=== PATIENT | male | born 1945 | race Caucasian/White ===

== ENCOUNTER 2017-09-24 16:37 | Inpatient (IN) | payer MEDICARE ==
[~2017-09-24] VITALS: Ht 182.9 cm; Wt 99.5 kg
[~2017-09-24 16:37] MED LIST: CALCIUM PO; CITA20 PO; IBUP800 PO; LEUC5 PO; LISI20 PO; LORA10ER PO; METTREX2.5 PO; Norco 10-325 T1 EACH PO
[2017-09-24 17:19] LABS: BASOPHILS ABSOLUTE AUTO 0.09 K/mm3 (0.00-0.23); BASOPHILS PERCENT AUTO 1 % (0-2); EOSINOPHILS ABSOLUTE AUTO 0.05 K/mm3 (0.00-0.68); EOSINOPHILS PERCENT AUTO 0 % (0-6); Hematocrit 39.6 % (37.0-53.0); Hemoglobin 13.1 g/dL (13.5-17.5); IMMATURE GRAN ABSOLUTE AUTO 0.05 K/mm3 (0.00-0.10); IMMATURE GRAN PERCENT AUTO 0 % (0-1); LYMPHOCYTES ABSOLUTE AUTO 0.91 K/mm3 (0.84-5.20); LYMPHOCYTES PERCENT AUTO 6 % (21-46); MONOCYTES ABSOLUTE AUTO 1.12 K/mm3 (0.16-1.47); MONOCYTES PERCENT AUTO 7 % (4-13); Mean Corpuscular HGB 30.5 pg (26.0-34.0); Mean Corpuscular HGB Conc 33.1 g/dL (31.5-36.5); Mean Corpuscular Volume 92 fL (80-100); Mean Platelet Volume 10.3 fL (9.1-12.4); NEUTROPHILS ABSOLUTE AUTO 12.83 K/mm3 (1.96-9.15); NEUTROPHILS PERCENT AUTO 85 % (41-73); Platelet Count 226 K/mm3 (150-400); RDW Coefficient Variation 13.7 % (11.7-14.2); RDW Standard Deviation 45.4 fL (35.1-46.3); White Blood Cell Count 15.05 K/mm3 (4.00-11.30)
[2017-09-24 17:39] LABS: Alanine Aminotransfer (ALT/SGP 18 U/L (12-78); Albumin, Blood 3.7 g/dL (3.4-5.0); Albumin/Globulin Ratio 0.7 (0.8-1.8); Alk Phos 81 U/L (50-136); Anion Gap 8 mmol/L (6-16); Aspartate Aminotrans (AST/SGOT 20 U/L (12-37); Bilirubin, Total 0.9 mg/dL (0.1-1.0); Blood Urea Nitrogen 16 mg/dL (8-24); Bun/Creatinine Ratio 15.2 (12.0-20.0); CO2, Blood 25 mmol/L (21-32); Calcium, Blood 8.9 mg/dL (8.5-10.1); Chloride, Blood 99 mmol/L (98-108); Creatinine, Blood 1.05 mg/dL (0.60-1.20); Globulin, Blood 5.1 g/dL (2.2-4.0); Glomerular Filtration Rate >60 (60-); Glucose, Blood 93 mg/dL (70-99); Potassium, Blood 4.2 mmol/L (3.5-5.5); Sodium, Blood 132 mmol/L (136-145); Total Protein, Blood 8.8 g/dL (6.4-8.2); Troponin I <0.015 ng/mL (0.000-0.040)
[2017-09-24] MEDS ORDERED: PRAV20 PO (21:08)
[2017-09-24] MEDS ORDERED: Omeprazole20 M1 PO (21:08)
[2017-09-24] MEDS ORDERED: VENL150ER PO (21:08)
[2017-09-24] MEDS ORDERED: MULVITB (21:09)
[2017-09-24] MEDS ORDERED: AMLO5 PO (21:09)
[2017-09-24 21:39] LABS: Influenza A Negative (NEGATIVE); Influenza B Negative (NEGATIVE)
[2017-09-25 00:24] LABS: Source, Urine Clean Catch
[2017-09-25 00:26] LABS: Bilirubin, Urine Neg (Neg); Blood, Urine 2+ (Neg); Glucose Qualitative, Urine Neg (Neg); Ketones, Urine Neg (Neg); Leukocyte Esterase, Urine Neg (Neg); Nitrite, Urine Neg (Neg); Protein, Urine Neg (Neg); Urobilinogen, Urine NORM (Normal)
[2017-09-25 00:51] LABS: Appearance, Urine Clear (Clear); Color, Urine Pale Yellow (P-Yellow)
[2017-09-25 01:42] LABS: Bacteria Not Seen /hpf; Squamous Epithelial Cells Not Seen /hpf (Few); White Blood Cells, Urine 0-2 /hpf (0-5)
[2017-09-25 05:30] LABS: BASOPHILS ABSOLUTE AUTO 0.05 K/mm3 (0.00-0.23); BASOPHILS PERCENT AUTO 0 % (0-2); EOSINOPHILS PERCENT AUTO 0 % (0-6); Hematocrit 35.8 % (37.0-53.0); Hemoglobin 12.2 g/dL (13.5-17.5); IMMATURE GRAN PERCENT AUTO 1 % (0-1); LYMPHOCYTES ABSOLUTE AUTO 0.48 K/mm3 (0.84-5.20); LYMPHOCYTES PERCENT AUTO 3 % (21-46); MONOCYTES ABSOLUTE AUTO 0.24 K/mm3 (0.16-1.47); MONOCYTES PERCENT AUTO 2 % (4-13); Mean Corpuscular HGB 31.1 pg (26.0-34.0); Mean Corpuscular HGB Conc 34.1 g/dL (31.5-36.5); Mean Corpuscular Volume 91 fL (80-100); Mean Platelet Volume 10.7 fL (9.1-12.4); NEUTROPHILS PERCENT AUTO 94 % (41-73); Platelet Count 171 K/mm3 (150-400); RDW Coefficient Variation 13.9 % (11.7-14.2); RDW Standard Deviation 44.8 fL (35.1-46.3); Red Blood Cell Count 3.92 M/mm3 (4.30-5.90); White Blood Cell Count 14.67 K/mm3 (4.00-11.30)
[2017-09-25 05:54] LABS: Alanine Aminotransfer (ALT/SGP 14 U/L (12-78); Albumin, Blood 3.1 g/dL (3.4-5.0); Albumin/Globulin Ratio 0.6 (0.8-1.8); Alk Phos 69 U/L (50-136); Anion Gap 9 mmol/L (6-16); Aspartate Aminotrans (AST/SGOT 18 U/L (12-37); Bilirubin, Total 0.8 mg/dL (0.1-1.0); Blood Urea Nitrogen 18 mg/dL (8-24); Bun/Creatinine Ratio 18.8 (12.0-20.0); CO2, Blood 24 mmol/L (21-32); Calcium, Blood 8.4 mg/dL (8.5-10.1); Chloride, Blood 104 mmol/L (98-108); Creatinine, Blood 0.96 mg/dL (0.60-1.20); Glomerular Filtration Rate >60 (60-); Glucose, Blood 140 mg/dL (70-99); Potassium, Blood 3.8 mmol/L (3.5-5.5); Sodium, Blood 137 mmol/L (136-145); Total Protein, Blood 8.1 g/dL (6.4-8.2)
[2017-09-26 04:35] LABS: Hematocrit 35.7 % (37.0-53.0); Mean Corpuscular HGB 30.8 pg (26.0-34.0); Mean Corpuscular HGB Conc 33.6 g/dL (31.5-36.5); Mean Corpuscular Volume 92 fL (80-100); Mean Platelet Volume 10.6 fL (9.1-12.4); Platelet Count 219 K/mm3 (150-400); RDW Coefficient Variation 14.2 % (11.7-14.2); RDW Standard Deviation 47.1 fL (35.1-46.3); Red Blood Cell Count 3.89 M/mm3 (4.30-5.90); White Blood Cell Count 18.32 K/mm3 (4.00-11.30)
[2017-09-26] MEDS ORDERED: Calcium Carbon500 M1 PO (10:18)
[2017-09-26] MEDS ORDERED: ROBITUSSIN COU237 ML PO (10:23)
[2017-09-26] MEDS ORDERED: Levaquin750 MG PO (10:24)
[2018-06-26] MEDS ORDERED: FOLI1 (21:02)
[2018-06-26] MEDS ORDERED: Vitamin C100 M1 (21:02)
[2018-06-26] MEDS ORDERED: FISH OIL + D31 EACH (21:02)
[2018-06-26] MEDS ORDERED: LEVFLO500 PO (21:06)
[2018-08-04] MEDS ORDERED: GABA400 PO (10:27)
[2018-08-04] MEDS ORDERED: FOLI400 PO (10:35)
[2018-08-04] MEDS ORDERED: ZESTRIL40 MG PO (10:41)
[2018-08-05] MEDS ORDERED: GABA400 PO (13:25)
[2018-08-06] MEDS ORDERED: ACET325 PO (13:31)
[2018-08-06] MEDS ORDERED: ALBU90OI INH (13:33)
[2018-08-06] MEDS ORDERED: CEFP200 PO (13:33)
[2018-08-06] MEDS ORDERED: DOCU100 PO (13:34)
[2018-08-06] MEDS ORDERED: ONDA4ODT MM (13:34)
[2018-08-06] MEDS ORDERED: LEVO750 PO (13:34)
[2018-08-06] MEDS ORDERED: PRED20 PO (13:34)
== END 2017-09-26 13:32 | disposition home or self-care (01) | DRG 871 ==
LOC: ER 16:37 → MEDS 20:00 → ENPENDDIS 09-26 09:02 → MEDS 09-26 13:32
PROVIDERS: Emergency Medicine; Internal Medicine; Psychiatry & Neurology Psychiatry
DX: A41.9 Sepsis, unspecified organism (principal); J18.9 Pneumonia, unspecified organism; J96.01 Acute respiratory failure with hypoxia; J44.0 Chronic obstructive pulmonary disease with (acute) lower respiratory infection; J44.1 Chronic obstructive pulmonary disease with (acute) exacerbation; G47.33 Obstructive sleep apnea (adult) (pediatric); M06.9 Rheumatoid arthritis, unspecified; Z79.899 Other long term (current) drug therapy
CPT/HCPCS: 36415; 71046; 80053; 81001; 83605; 84145; 84484; 85025; 85027; 87040; 87804; 93005; 93010; 94640; 94660; 94762; 96365; 96375; 99285; J0456; J0696; J1650; J2765; J2930; J7030; J7050; J8610

== ENCOUNTER 2018-01-17 20:09 | Emergency (ER) | payer MEDICARE ==
[~2018-01-17] VITALS: Ht 167.6 cm; Wt 99.3 kg
[~2018-01-17 20:09] MED LIST changes: +AMLO5 PO; +Calcium Carbon500 M1 PO; +HYDACE10B PO; +Levaquin750 MG PO; +MULVITB; -Norco 10-325 T1 EACH PO; +Omeprazole20 M1 PO; +PRAV20 PO; +ROBITUSSIN COU237 ML PO; +VENL150ER PO
[2018-01-17 20:49] LABS: BASOPHILS ABSOLUTE AUTO 0.08 K/mm3 (0.00-0.23); BASOPHILS PERCENT AUTO 1 % (0-2); EOSINOPHILS ABSOLUTE AUTO 0.09 K/mm3 (0.00-0.68); EOSINOPHILS PERCENT AUTO 1 % (0-6); Hematocrit 38.2 % (37.0-53.0); Hemoglobin 12.9 g/dL (13.5-17.5); IMMATURE GRAN ABSOLUTE AUTO 0.06 K/mm3 (0.00-0.10); IMMATURE GRAN PERCENT AUTO 1 % (0-1); LYMPHOCYTES ABSOLUTE AUTO 0.98 K/mm3 (0.84-5.20); LYMPHOCYTES PERCENT AUTO 7 % (21-46); MONOCYTES PERCENT AUTO 8 % (4-13); Mean Corpuscular HGB 31.3 pg (26.0-34.0); Mean Corpuscular HGB Conc 33.8 g/dL (31.5-36.5); Mean Corpuscular Volume 93 fL (80-100); Mean Platelet Volume 10.3 fL (9.1-12.4); NEUTROPHILS ABSOLUTE AUTO 11.05 K/mm3 (1.96-9.15); NEUTROPHILS PERCENT AUTO 83 % (41-73); Platelet Count 252 K/mm3 (150-400); RDW Coefficient Variation 14.1 % (11.7-14.2); RDW Standard Deviation 47.3 fL (35.1-46.3); Red Blood Cell Count 4.12 M/mm3 (4.30-5.90); White Blood Cell Count 13.26 K/mm3 (4.00-11.30)
[2018-01-17 21:07] LABS: Alanine Aminotransfer (ALT/SGP 19 U/L (12-78); Albumin, Blood 3.8 g/dL (3.4-5.0); Albumin/Globulin Ratio 0.7 (0.8-1.8); Alk Phos 94 U/L (50-136); Anion Gap 7 mmol/L (6-16); Aspartate Aminotrans (AST/SGOT 22 U/L (12-37); Bilirubin, Total 0.9 mg/dL (0.1-1.0); Blood Urea Nitrogen 21 mg/dL (8-24); CO2, Blood 26 mmol/L (21-32); Chloride, Blood 102 mmol/L (98-108); Creatinine, Blood 1.05 mg/dL (0.60-1.20); Globulin, Blood 5.1 g/dL (2.2-4.0); Glomerular Filtration Rate >60 (60-); Glucose, Blood 93 mg/dL (70-99); Potassium, Blood 4.4 mmol/L (3.5-5.5); Sodium, Blood 135 mmol/L (136-145); Total Protein, Blood 8.9 g/dL (6.4-8.2)
[2018-01-17 21:39] LABS: Source, Urine Clean Catch
[2018-01-17 21:43] LABS: Appearance, Urine Clear (Clear); Bilirubin, Urine Neg (Neg); Blood, Urine Neg (Neg); Color, Urine Yellow (P-Yellow); Glucose Qualitative, Urine Neg (Neg); Ketones, Urine Neg (Neg); Leukocyte Esterase, Urine Neg (Neg); Nitrite, Urine Neg (Neg); Protein, Urine Neg (Neg); Urobilinogen, Urine NORM (Normal)
[2018-01-17] MEDS ORDERED: Augmentin 875-1 EACH PO (22:17)
== END 2018-01-17 22:34 | disposition home or self-care (01) ==
LOC: ER 20:09
PROVIDERS: Emergency Medicine
DX: J18.9 Pneumonia, unspecified organism (principal); Z79.899 Other long term (current) drug therapy; Z79.891 Long term (current) use of opiate analgesic; Z79.2 Long term (current) use of antibiotics; I10 Essential (primary) hypertension; Z87.891 Personal history of nicotine dependence
CPT/HCPCS: 36415; 71046; 80053; 81003; 83605; 85025; 94640; J0696

== ENCOUNTER 2018-10-28 15:23 | Inpatient (IN) | payer MEDICARE ==
[~2018-10-28] VITALS: Ht 188 cm; Wt 91.5 kg
[~2018-10-28 15:23] MED LIST changes: +ACET325 PO; +ALBU90OI INH; +Augmentin 875-1 EACH PO; +CEFP200 PO; +DOCU100 PO; +FISH OIL + D31 EACH; +FOLI1; +FOLI400 PO; +GABA400 PO; -HYDACE10B PO; +LEVFLO500 PO; +LEVO750 PO; +Norco 10-325 T1 EACH PO; +ONDA4ODT MM; +PRED20 PO; +Vitamin C100 M1; +ZESTRIL40 MG PO
[2018-10-28 17:41] LABS: BASOPHILS ABSOLUTE AUTO 0.11 K/mm3 (0.00-0.23); BASOPHILS PERCENT AUTO 1 % (0-2); EOSINOPHILS ABSOLUTE AUTO 0.07 K/mm3 (0.00-0.68); EOSINOPHILS PERCENT AUTO 1 % (0-6); Hematocrit 35.6 % (37.0-53.0); Hemoglobin 11.7 g/dL (13.5-17.5); IMMATURE GRAN ABSOLUTE AUTO 0.05 K/mm3 (0.00-0.10); IMMATURE GRAN PERCENT AUTO 0 % (0-1); LYMPHOCYTES ABSOLUTE AUTO 1.26 K/mm3 (0.84-5.20); LYMPHOCYTES PERCENT AUTO 8 % (21-46); MONOCYTES PERCENT AUTO 9 % (4-13); Mean Corpuscular HGB 30.7 pg (26.0-34.0); Mean Corpuscular HGB Conc 32.9 g/dL (31.5-36.5); Mean Corpuscular Volume 93 fL (80-100); Mean Platelet Volume 10.7 fL (9.1-12.4); NEUTROPHILS ABSOLUTE AUTO 12.51 K/mm3 (1.96-9.15); NEUTROPHILS PERCENT AUTO 81 % (41-73); Platelet Count 227 K/mm3 (150-400); RDW Coefficient Variation 13.8 % (11.7-14.2); RDW Standard Deviation 46.3 fL (35.1-46.3); Red Blood Cell Count 3.81 M/mm3 (4.30-5.90)
[2018-10-28 17:52] LABS: Albumin, Blood 3.7 g/dL (3.4-5.0); Albumin/Globulin Ratio 0.9 (0.8-1.8); Bilirubin, Total 1.2 mg/dL (0.1-1.0); Calcium, Blood 8.7 mg/dL (8.5-10.1); Creatinine, Blood 1.39 mg/dL (0.60-1.20); Globulin, Blood 4.3 g/dL (2.2-4.0)
[2018-10-28] MEDS ORDERED: ASCO500 PO (18:48)
[2018-10-28] MEDS ORDERED: Fish Oil 10001000 MG PO (18:49)
[2018-10-28 22:49] LABS: Source, Urine Clean Catch
[2018-10-28 22:51] LABS: Bilirubin, Urine Neg (Neg); Blood, Urine 5+ (Neg); Glucose Qualitative, Urine Neg (Neg); Ketones, Urine 1+ (Neg); Leukocyte Esterase, Urine 1+ (Neg); Nitrite, Urine Neg (Neg); Protein, Urine 3+ (Neg); Urobilinogen, Urine NORM (Normal)
[2018-10-28 22:59] LABS: Amorphous Light (0-Heavy); Appearance, Urine Clear (Clear); Bacteria Few /hpf; Color, Urine Yellow (P-Yellow); Red Blood Cells, Urine Rare /hpf (0-2); Squamous Epithelial Cells Rare /hpf (Few); White Blood Cells, Urine 0-2 /hpf (0-5)
[2018-10-29 02:46] LABS: Source, Urine Catheter
[2018-10-29 02:51] LABS: Bilirubin, Urine Neg (Neg); Blood, Urine 4+ (Neg); Glucose Qualitative, Urine Neg (Neg); Ketones, Urine Neg (Neg); Leukocyte Esterase, Urine Neg (Neg); Nitrite, Urine Neg (Neg); Protein, Urine 2+ (Neg); Urobilinogen, Urine NORM (Normal)
[2018-10-29 03:08] LABS: Appearance, Urine Clear (Clear); Bacteria Rare /hpf; Color, Urine Yellow (P-Yellow); Red Blood Cells, Urine 0-2 /hpf (0-2); Squamous Epithelial Cells Not Seen /hpf (Few); White Blood Cells, Urine Not Seen /hpf (0-5)
[2018-10-29 03:55] LABS: Hematocrit 32.9 % (37.0-53.0); Hemoglobin 10.7 g/dL (13.5-17.5); Mean Corpuscular HGB 31.2 pg (26.0-34.0); Mean Corpuscular HGB Conc 32.5 g/dL (31.5-36.5); Mean Platelet Volume 10.8 fL (9.1-12.4); Platelet Count 172 K/mm3 (150-400); RDW Coefficient Variation 13.7 % (11.7-14.2); RDW Standard Deviation 46.9 fL (35.1-46.3); Red Blood Cell Count 3.43 M/mm3 (4.30-5.90); White Blood Cell Count 10.91 K/mm3 (4.00-11.30)
[2018-10-29 04:04] LABS: Mean Corpuscular Volume 96 fL (80-100)
[2018-10-29 04:08] LABS: International Normalized Ratio 1.08; Prothrombin Time Results 11.4 Sec (9.7-11.5)
[2018-10-29 04:16] LABS: Anion Gap 7 mmol/L (6-16); Blood Urea Nitrogen 28 mg/dL (8-24); Bun/Creatinine Ratio 24.6 (12.0-20.0); CO2, Blood 23 mmol/L (21-32); Calcium, Blood 8.2 mg/dL (8.5-10.1); Chloride, Blood 106 mmol/L (98-108); Creatinine, Blood 1.14 mg/dL (0.60-1.20); Glomerular Filtration Rate >60 (60-); Glucose, Blood 98 mg/dL (70-99); Potassium, Blood 3.8 mmol/L (3.5-5.5); Sodium, Blood 136 mmol/L (136-145)
[2018-10-29 05:08] LABS: Adenovirus Not Detected (NOT DETECT); Bordetella pertussis Not Detected (NOT DETECT); Chlamydophila pneumoniae Not Detected (NOT DETECT); Coronavirus 229E Not Detected (NOT DETECT); Coronavirus HKU1 Not Detected (NOT DETECT); Coronavirus NL63 Not Detected (NOT DETECT); Coronavirus OC43 Not Detected (NOT DETECT); Human Metapneumovirus Not Detected (NOT DETECT); Human Rhinovirus/Enterovirus Not Detected (NOT DETECT); Influenza A Not Detected (NOT DETECT); Influenza A/2009-H1 Not Detected (NOT DETECT); Influenza A/H1 Not Detected (NOT DETECT); Influenza A/H3 Not Detected (NOT DETECT); Influenza B Not Detected (NOT DETECT); Mycoplasma pneumoniae Not Detected (NOT DETECT); Parainfluenza Virus 1 Not Detected (NOT DETECT); Parainfluenza Virus 2 Not Detected (NOT DETECT); Parainfluenza Virus 3 Not Detected (NOT DETECT); Parainfluenza Virus 4 Not Detected (NOT DETECT); Respiratory Syncytial Virus Not Detected (NOT DETECT)
--- NOTE | 2018-10-29 06:34 | NUR ---
SHIFT SUMMARY PT ALERT AND ORIENTED. PT HAS HX OF DEMENTIA WITH MILD CONFUSION. VS STABLE. 02 SATS >92% ON 2L NC. PT HAS ABRASION TO THE LEFT ARM COVERED WTIH DRESSING FROM RECENT FALL. HR IS NSR WITH PAC AND PVC WITH A RATE IN THE 60'S. NS INF PER ORDERS. NO CHANGES SINCE INITIAL ASSESSMENT. WILL CONTINUE TO MONITOR AND REPORT TO ONCOMING RN. CALL LIGHT IN REACH.
--- NOTE | 2018-10-29 15:32 | NUR ---
Spiritual care visit conducted. Patient was sitting up in bed and alert when I entered the patient's room. I introduced myself and patient welcomed me to sit down. As I established therapeutic alliance patient openly shared about his medical and family history and about his pentecostalism background. I listened empathically, provided companionship and normalized patient's experience. Patient told many stories and it appeared to have a catharsis effect. Patient expressed gratitude for the visit.
--- NOTE | 2018-10-29 16:08 | NUR ---
Wound care done: Left fore arm and upper arm abrasion were dressed with mepitel one to prevent adhesion of the dressing to the wound. Maxabsorb mepilex was applied over this for absorbtion, secured then with kerlix wrap followed by MT spandage. NO active drainage was noted, and photo wound documentation done and placed in to the pt's chart. Pt denies pain. tolerated the wound care very well.
--- NOTE | 2018-10-29 16:29 | NUR ---
The pt reports that he is having no pain at this time.
[2018-10-30 04:05] LABS: BASOPHILS ABSOLUTE AUTO 0.06 K/mm3 (0.00-0.23); BASOPHILS PERCENT AUTO 1 % (0-2); EOSINOPHILS ABSOLUTE AUTO 0.09 K/mm3 (0.00-0.68); EOSINOPHILS PERCENT AUTO 1 % (0-6); Hematocrit 31.3 % (37.0-53.0); Hemoglobin 10.4 g/dL (13.5-17.5); IMMATURE GRAN ABSOLUTE AUTO 0.04 K/mm3 (0.00-0.10); IMMATURE GRAN PERCENT AUTO 0 % (0-1); LYMPHOCYTES ABSOLUTE AUTO 0.64 K/mm3 (0.84-5.20); LYMPHOCYTES PERCENT AUTO 6 % (21-46); MONOCYTES ABSOLUTE AUTO 1.07 K/mm3 (0.16-1.47); MONOCYTES PERCENT AUTO 11 % (4-13); Mean Corpuscular HGB Conc 33.2 g/dL (31.5-36.5); Mean Platelet Volume 10.8 fL (9.1-12.4); NEUTROPHILS ABSOLUTE AUTO 8.23 K/mm3 (1.96-9.15); NEUTROPHILS PERCENT AUTO 81 % (41-73); Platelet Count 188 K/mm3 (150-400); RDW Coefficient Variation 13.6 % (11.7-14.2); RDW Standard Deviation 45.9 fL (35.1-46.3); Red Blood Cell Count 3.36 M/mm3 (4.30-5.90); White Blood Cell Count 10.13 K/mm3 (4.00-11.30)
[2018-10-30 04:14] LABS: Mean Corpuscular Volume 93 fL (80-100)
[2018-10-30 04:25] LABS: Anion Gap 8 mmol/L (6-16); Blood Urea Nitrogen 19 mg/dL (8-24); Bun/Creatinine Ratio 21.6 (12.0-20.0); CO2, Blood 24 mmol/L (21-32); Calcium, Blood 8.2 mg/dL (8.5-10.1); Chloride, Blood 105 mmol/L (98-108); Creatinine, Blood 0.88 mg/dL (0.60-1.20); Glomerular Filtration Rate >60 (60-); Glucose, Blood 107 mg/dL (70-99); Magnesium, Blood 1.4 mg/dL (1.6-2.4); Potassium, Blood 3.7 mmol/L (3.5-5.5); Sodium, Blood 137 mmol/L (136-145)
--- NOTE | 2018-10-30 06:40 | NUR ---
SHIFT SUMMARY PATIENT PLEASENT AND COOPERATIVE THROUGHOUT THE NIGHT. PATIENT APPEARED TO NAP ON AND OFF THROUGHOUT THE NIGHT LAST NIGHT, HOWEVER, PATIENT STATES THAT IS HOW HE USUALLY SLEEPS. PATIENT REPORTED THAT HE SLEPT WELL LAST NIGHT. PATIENT MEDICATED FOR PAIN PER EMAR. IV ABX GIVEN PER ORDERS. PATIENT APPEARED ALERT AND ORIENTED THROUGHOUT THE NIGHT, HOWEVER, PATIENT DID SET OFF THE BED ALARM SEVERAL TIMES LAST NIGHT WHILE GETTING UP TO USE THE URINAL EVEN WHEN REMINDED TO USE THE CALL LIGHT AND TO WAIT FOR SOMEONE TO ASSIST. BED IN LOW POSITION, BED ALARM ON FOR SAFETY, CALL LIGHT WITHIN REACH. PATIENT REFUSED TO USE THE CPAP AND CONTINUOUS BIOX, REFUSAL FORM SIGNED AND IN THE FRONT OF THE CHART. WILL CONTINUE TO MONITOR PATIENT AND REPORT TO ONCOMING RN.
[2018-10-30] MEDS ORDERED: LEVO750 PO (14:52)
[2018-10-30] MEDS ORDERED: CALCIUM WITH V1 EACH PO (14:52)
[2018-10-30] MEDS ORDERED: MELA3 PO (14:53)
[2018-10-30] MEDS ORDERED: METR500 PO (14:54)
[2018-10-30] MEDS ORDERED: MAGCHL64ER PO (14:54)
[2018-10-30] MEDS ORDERED: SACC250C PO (14:55)
== END 2018-10-30 15:32 | disposition home or self-care (01) | DRG 871 ==
LOC: ER 15:23 → ERHOLD 20:08 → PCU 10-29 02:21
PROVIDERS: Family Medicine; Nurse Practitioner Acute Care; Physician Assistant; ADMIT Internal Medicine
DX: A41.9 Sepsis, unspecified organism (principal); J96.01 Acute respiratory failure with hypoxia; G92 Toxic encephalopathy; J18.1 Lobar pneumonia, unspecified organism; N17.9 Acute kidney failure, unspecified; E86.0 Dehydration; G47.33 Obstructive sleep apnea (adult) (pediatric); F03.90 Unspecified dementia, unspecified severity, without behavioral disturbance, psychotic disturbance, mood disturbance, and anxiety; W19.XXXA Unspecified fall, initial encounter; K21.9 Gastro-esophageal reflux disease without esophagitis; E78.5 Hyperlipidemia, unspecified; M06.9 Rheumatoid arthritis, unspecified; Z91.81 History of falling
CPT/HCPCS: 36415; 70450; 71046; 73502; 80048; 80053; 81001; 83605; 83690; 83735; 84145; 85025; 85027; 85610; 87086; 87486; 87581; 87633; 87798; 92610; 96361; 96365; 96375; 96376; 97116; 97162; 97166; 97530; 99285-25; J1650; J1956; J2543; J3475; J7030; J7040; J8610

== ENCOUNTER → 2019-07-29 | Outpatient (CLI) | payer MEDICARE ==
[~2019-07-29] MED LIST changes: +ASCO500 PO; +CALCIUM WITH V1 EACH PO; +Fish Oil 10001000 MG PO; +MAGCHL64ER PO; +MELA3 PO; +METR500 PO; +SACC250C PO
== END | disposition home or self-care (01) ==
LOC: PLD 11:58 → LAB SHORT 11:58
DX: D48.5 Neoplasm of uncertain behavior of skin (principal)
CPT/HCPCS: 88305

== ENCOUNTER 2019-10-29 20:53 | Inpatient (IN) | payer MEDICARE ==
[~2019-10-29] VITALS: Ht 185.4 cm; Wt 93.4 kg
[2019-10-29 21:44] LABS: BASOPHILS PERCENT AUTO 1 % (0-2); EOSINOPHILS ABSOLUTE AUTO 0.14 K/mm3 (0.00-0.68); EOSINOPHILS PERCENT AUTO 1 % (0-6); Hematocrit 37.8 % (37.0-53.0); Hemoglobin 12.7 g/dL (13.5-17.5); IMMATURE GRAN ABSOLUTE AUTO 0.04 K/mm3 (0.00-0.10); IMMATURE GRAN PERCENT AUTO 0 % (0-1); LYMPHOCYTES ABSOLUTE AUTO 0.83 K/mm3 (0.84-5.20); LYMPHOCYTES PERCENT AUTO 7 % (21-46); MONOCYTES ABSOLUTE AUTO 0.84 K/mm3 (0.16-1.47); MONOCYTES PERCENT AUTO 7 % (4-13); Mean Corpuscular HGB 31.4 pg (26.0-34.0); Mean Corpuscular HGB Conc 33.6 g/dL (31.5-36.5); Mean Corpuscular Volume 94 fL (80-100); Mean Platelet Volume 10.5 fL (9.1-12.4); NEUTROPHILS ABSOLUTE AUTO 9.35 K/mm3 (1.96-9.15); NEUTROPHILS PERCENT AUTO 83 % (41-73); Platelet Count 245 K/mm3 (150-400); RDW Coefficient Variation 13.7 % (11.7-14.2); Red Blood Cell Count 4.04 M/mm3 (4.30-5.90)
[2019-10-29 22:02] LABS: International Normalized Ratio 1.01; Prothrombin Time Results 10.8 Sec (9.7-11.5)
[2019-10-29 22:03] LABS: Alanine Aminotransfer (ALT/SGP 16 U/L (12-78); Albumin, Blood 3.7 g/dL (3.4-5.0); Albumin/Globulin Ratio 0.8 (0.8-1.8); Alk Phos 87 U/L (50-136); Anion Gap 3 mmol/L (6-16); Aspartate Aminotrans (AST/SGOT 18 U/L (12-37); Bilirubin, Total 0.7 mg/dL (0.1-1.0); Blood Urea Nitrogen 27 mg/dL (8-24); Bun/Creatinine Ratio 25.7 (12.0-20.0); CO2, Blood 26 mmol/L (21-32); Calcium, Blood 8.7 mg/dL (8.5-10.1); Chloride, Blood 106 mmol/L (98-108); Creatinine, Blood 1.05 mg/dL (0.60-1.20); Globulin, Blood 4.5 g/dL (2.2-4.0); Glomerular Filtration Rate >60 (60-); Glucose, Blood 103 mg/dL (70-99); Sodium, Blood 135 mmol/L (136-145); Total Protein, Blood 8.2 g/dL (6.4-8.2)
[2019-10-30 02:15] LABS: Adenovirus Not Detected (NOT DETECT); Bordetella pertussis Not Detected (NOT DETECT); Chlamydophila pneumoniae Not Detected (NOT DETECT); Coronavirus 229E Not Detected (NOT DETECT); Coronavirus HKU1 Not Detected (NOT DETECT); Coronavirus NL63 Not Detected (NOT DETECT); Coronavirus OC43 Not Detected (NOT DETECT); Human Metapneumovirus Not Detected (NOT DETECT); Human Rhinovirus/Enterovirus Not Detected (NOT DETECT); Influenza A/2009-H1 Not Detected (NOT DETECT); Influenza A/H1 Not Detected (NOT DETECT); Influenza A/H3 Not Detected (NOT DETECT); Influenza B Not Detected (NOT DETECT); Mycoplasma pneumoniae Not Detected (NOT DETECT); Parainfluenza Virus 1 Not Detected (NOT DETECT); Parainfluenza Virus 2 Not Detected (NOT DETECT); Parainfluenza Virus 3 Not Detected (NOT DETECT); Parainfluenza Virus 4 Not Detected (NOT DETECT); Respiratory Syncytial Virus Not Detected (NOT DETECT)
[2019-10-30 03:41] LABS: Test Name COVID-19
[2019-10-30 06:05] LABS: Hemoglobin 12.3 g/dL (13.5-17.5); Mean Corpuscular HGB 31.1 pg (26.0-34.0); Mean Corpuscular HGB Conc 33.2 g/dL (31.5-36.5); Mean Corpuscular Volume 94 fL (80-100); Mean Platelet Volume 10.2 fL (9.1-12.4); Platelet Count 231 K/mm3 (150-400); RDW Coefficient Variation 13.9 % (11.7-14.2); RDW Standard Deviation 47.5 fL (35.1-46.3); Red Blood Cell Count 3.95 M/mm3 (4.30-5.90); White Blood Cell Count 11.72 K/mm3 (4.00-11.30)
[2019-10-30 06:24] LABS: Alanine Aminotransfer (ALT/SGP 17 U/L (12-78); Albumin, Blood 3.3 g/dL (3.4-5.0); Albumin/Globulin Ratio 0.8 (0.8-1.8); Alk Phos 84 U/L (50-136); Anion Gap 7 mmol/L (6-16); Aspartate Aminotrans (AST/SGOT 19 U/L (12-37); Bilirubin, Total 1.1 mg/dL (0.1-1.0); Blood Urea Nitrogen 24 mg/dL (8-24); CO2, Blood 25 mmol/L (21-32); Calcium, Blood 8.5 mg/dL (8.5-10.1); Chloride, Blood 106 mmol/L (98-108); Creatinine, Blood 1.09 mg/dL (0.60-1.20); Globulin, Blood 4.4 g/dL (2.2-4.0); Glomerular Filtration Rate >60 (60-); Glucose, Blood 104 mg/dL (70-99); Potassium, Blood 3.9 mmol/L (3.5-5.5); Sodium, Blood 138 mmol/L (136-145); Total Protein, Blood 7.7 g/dL (6.4-8.2)
[2019-10-30 07:02] LABS: Source, Urine Catheter
[2019-10-30 07:13] LABS: Bilirubin, Urine Neg (Neg); Blood, Urine 3+ (Neg); Glucose Qualitative, Urine Neg (Neg); Ketones, Urine Neg (Neg); Leukocyte Esterase, Urine Neg (Neg); Nitrite, Urine Neg (Neg); Protein, Urine 3+ (Neg); Urobilinogen, Urine 2+ (Normal); pH, Urine 6.5 (5.0-8.0)
[2019-10-30 07:20] LABS: Appearance, Urine Clear (Clear); Color, Urine Yellow (P-Yellow)
[2019-10-30 07:24] LABS: Bacteria Rare /hpf; Red Blood Cells, Urine 0-2 /hpf (0-2); Squamous Epithelial Cells Not Seen /hpf (Few); White Blood Cells, Urine 0-2 /hpf (0-5)
--- NOTE | 2019-10-31 04:44 | NUR ---
SHIFT SUMMARY: PT IS ALERT AND ORIENTED WITH NOTABLE CONFUSION. PT IS CALM AND COOPERATIVE WITH CARE. PT NOT USING HIS CALL LIGHT, SET THE BED ALARM OFF SEVERAL TIMES THROUGHOUT THE NIGHT. PT IS A ONE PERSON ASSIST TO THE BATHROOM. INCONTINENT SEVERAL TIMES, DID USE THE URINAL WELL. PT REPORTS GENERALIZED PAIN, GAVE PRN TYLENOL. FLUIDS RUNNING ORDERED. PT KEPT ON AIRBORN PRECAUTIONS FOR LALA VIRUS RULEOUT, RESULTS PENDING. BED IN LOW POSITION, CALL LIGHT WITHIN REACH. WILL CONTINUE TO MONITOR.
[2019-10-31 05:14] LABS: BASOPHILS ABSOLUTE AUTO 0.08 K/mm3 (0.00-0.23); BASOPHILS PERCENT AUTO 1 % (0-2); EOSINOPHILS ABSOLUTE AUTO 0.04 K/mm3 (0.00-0.68); EOSINOPHILS PERCENT AUTO 0 % (0-6); Hematocrit 36.6 % (37.0-53.0); Hemoglobin 12.2 g/dL (13.5-17.5); IMMATURE GRAN ABSOLUTE AUTO 0.09 K/mm3 (0.00-0.10); IMMATURE GRAN PERCENT AUTO 1 % (0-1); LYMPHOCYTES ABSOLUTE AUTO 0.56 K/mm3 (0.84-5.20); LYMPHOCYTES PERCENT AUTO 4 % (21-46); MONOCYTES ABSOLUTE AUTO 1.13 K/mm3 (0.16-1.47); MONOCYTES PERCENT AUTO 8 % (4-13); Mean Corpuscular HGB 30.8 pg (26.0-34.0); Mean Corpuscular HGB Conc 33.3 g/dL (31.5-36.5); Mean Corpuscular Volume 92 fL (80-100); Mean Platelet Volume 10.4 fL (9.1-12.4); NEUTROPHILS ABSOLUTE AUTO 12.07 K/mm3 (1.96-9.15); NEUTROPHILS PERCENT AUTO 86 % (41-73); Platelet Count 220 K/mm3 (150-400); RDW Coefficient Variation 13.6 % (11.7-14.2); RDW Standard Deviation 45.9 fL (35.1-46.3); Red Blood Cell Count 3.96 M/mm3 (4.30-5.90); White Blood Cell Count 13.97 K/mm3 (4.00-11.30)
[2019-10-31 05:32] LABS: Anion Gap 8 mmol/L (6-16); Blood Urea Nitrogen 20 mg/dL (8-24); Bun/Creatinine Ratio 17.7 (12.0-20.0); CO2, Blood 24 mmol/L (21-32); Calcium, Blood 8.2 mg/dL (8.5-10.1); Chloride, Blood 105 mmol/L (98-108); Creatinine, Blood 1.13 mg/dL (0.60-1.20); Glomerular Filtration Rate >60 (60-); Glucose, Blood 92 mg/dL (70-99); Potassium, Blood 3.9 mmol/L (3.5-5.5); Sodium, Blood 137 mmol/L (136-145)
[2019-10-31] MEDS ORDERED: ZYRTEC10 MG PO (08:26)
[2019-10-31] MEDS ORDERED: TUMS500 MG PO (08:26)
[2019-10-31] MEDS ORDERED: GABA400 PO (08:28)
[2019-10-31] MEDS ORDERED: Rituxan10 MG/ML (08:31)
[2019-10-31] MEDS ORDERED: VENL37.5 PO (08:32)
--- NOTE | 2019-10-31 19:28 | NUR ---
SHIFT SUMMARY PT HAS HAD NO ACUTE CHANGES THIS SHIFT. MEDICATED FOR JOINT PAIN X1 THIS SHIFT PER EMAR. PT UP WITH ASSIST. POSSIBLE DISCHARGE TOMORROW. REPORT GIVEN TO MARINA EUGENE. CALL LIGHT IN REACH.
--- NOTE | 2019-11-01 05:10 | NUR ---
SHIFT SUMMARY: PATIENT IS A&OX3, DOES NOT KNOW DATE AND IS FORGETFULL AT TIMES AND DOES NOT CALL FOR ASSIST OOB, BED ALARM IS ON FOR SAFETY. VS ARE STABLE, PATIENT REPORTS PAIN IN BILAT HIPS 7-8/10, PRN NORCO IS EFFECTIVE FOR PAIN. PATIENT IS ABLE TO MAINTAIN SATS ABOVE 90% ON RA, NO RESPIRATORY DISTRESS OBSERVED.
[2019-11-01] MEDS ORDERED: Norco 5-325 Ta1 EACH PO (11:19)
[2019-11-01] MEDS ORDERED: PRED20 PO (11:21)
[2019-11-01] MEDS ORDERED: TAMS.4ER PO (11:22)
[2019-11-01] MEDS ORDERED: AZIT250 PO (11:23)
--- NOTE | 2019-11-01 11:46 | NUR ---
PT DCD HOME WITH . MED REC FAXED TO PHARMACY ON FILE PER REQUEST. ALL MEDS AND INSTRUCTIONS REVIEWED WITH THE PT AND HIS . ALL QUESTIONS ANSWERED. IV REMOVED WITH NO ISSUE. PT PACKED HIS PERSONAL BELONGINGS. WENT TO PHARMACY TO [facility] AND WILL RETURN TO [facility] TO DRIVE HIM HOME.
== END 2019-11-01 12:48 | disposition home or self-care (01) | DRG 871 ==
LOC: ER 20:53 → ERHOLD 20:54 → EDBEDREQ 10-30 05:27 → MEDS 10-30 16:00
PROVIDERS: Emergency Medicine; Internal Medicine; Physician Assistant; ADMIT Internal Medicine
DX: A41.9 Sepsis, unspecified organism (principal); J18.9 Pneumonia, unspecified organism; J44.1 Chronic obstructive pulmonary disease with (acute) exacerbation; J44.0 Chronic obstructive pulmonary disease with (acute) lower respiratory infection; I10 Essential (primary) hypertension; M06.9 Rheumatoid arthritis, unspecified; E78.5 Hyperlipidemia, unspecified; F03.90 Unspecified dementia, unspecified severity, without behavioral disturbance, psychotic disturbance, mood disturbance, and anxiety; G47.30 Sleep apnea, unspecified; K21.9 Gastro-esophageal reflux disease without esophagitis; F32.9 Major depressive disorder, single episode, unspecified; Z87.891 Personal history of nicotine dependence
CPT/HCPCS: 0099U; 36415; 71046; 80048; 80053; 81001; 83605; 84145; 85025; 85027; 85610; 85730; 87040; 93005; 93010; 94760; 96361; 96365; 96366; 96372; 99285-25; A9270; A9270-GY; G0378; J1650; J1956; J7030; J7512

== ENCOUNTER 2022-08-01 12:31 | Emergency (ER) | payer MEDICARE ==
[~2022-08-01] VITALS: Ht 180.3 cm; Wt 102.1 kg
[~2022-08-01 12:31] MED LIST changes: +AIRDUO RESPICL1 EAC5 INH; +AMOCLA875 PO; +AZIT250 PO; +CEPH500 PO; +Norco 5-325 Ta1 EACH PO; +OMEP20ER PO; -Omeprazole20 M1 PO; +PROBIOTIC250 MG PO; +Rituxan10 MG/ML; +TAMS.4ER PO; +TUMS500 MG PO; +VENL37.5 PO; +VENL75ER PO; -ZESTRIL40 MG PO; +ZYRTEC10 MG PO
[2022-08-01 13:39] LABS: BASOPHILS ABSOLUTE AUTO 0.12 K/mm3 (0.00-0.23); BASOPHILS PERCENT AUTO 2 % (0-2); EOSINOPHILS ABSOLUTE AUTO 0.31 K/mm3 (0.00-0.68); EOSINOPHILS PERCENT AUTO 4 % (0-6); Hematocrit 38.2 % (37.0-53.0); Hemoglobin 12.9 g/dL (13.5-17.5); IMMATURE GRAN ABSOLUTE AUTO 0.04 K/mm3 (0.00-0.10); IMMATURE GRAN PERCENT AUTO 1 % (0-1); LYMPHOCYTES ABSOLUTE AUTO 0.84 K/mm3 (0.84-5.20); LYMPHOCYTES PERCENT AUTO 12 % (21-46); MONOCYTES ABSOLUTE AUTO 0.78 K/mm3 (0.16-1.47); MONOCYTES PERCENT AUTO 11 % (4-13); Mean Corpuscular HGB 29.5 pg (26.0-34.0); Mean Corpuscular HGB Conc 33.8 g/dL (31.5-36.5); Mean Corpuscular Volume 87 fL (80-100); Mean Platelet Volume 10.3 fL (9.1-12.4); NEUTROPHILS ABSOLUTE AUTO 5.05 K/mm3 (1.96-9.15); NEUTROPHILS PERCENT AUTO 71 % (41-73); Platelet Count 237 K/mm3 (150-400); RDW Coefficient Variation 15.5 % (11.7-14.2); RDW Standard Deviation 49.2 fL (35.1-46.3); Red Blood Cell Count 4.38 M/mm3 (4.30-5.90); White Blood Cell Count 7.14 K/mm3 (4.00-11.30)
[2022-08-01 13:59] LABS: Albumin, Blood 3.7 g/dL (3.4-5.0); Albumin/Globulin Ratio 0.9 (0.8-1.8); Bilirubin, Total 0.7 mg/dL (0.1-1.0); Bun/Creatinine Ratio 17.3 (12.0-20.0); Calcium, Blood 8.9 mg/dL (8.5-10.1); Creatinine, Blood 1.1 mg/dL (0.60-1.20); Globulin, Blood 3.9 g/dL (2.2-4.0); Potassium, Blood 3.9 mmol/L (3.5-5.5); Total Protein, Blood 7.6 g/dL (6.4-8.2)
== END 2022-08-01 17:51 | disposition home or self-care (01) ==
LOC: ER 12:31
PROVIDERS: Physician Assistant
DX: R53.1 Weakness (principal); I10 Essential (primary) hypertension; J44.9 Chronic obstructive pulmonary disease, unspecified; Z87.891 Personal history of nicotine dependence
CPT/HCPCS: 36415; 80053; 85025; 93005; 93010

== ENCOUNTER 2022-09-03 11:42 | Inpatient (IN) | payer OTHER, MEDICARE ==
[~2022-09-03] VITALS: Ht 172.7 cm; Wt 97.1 kg
[2022-09-03 12:09] LABS: BASOPHILS ABSOLUTE AUTO 0.12 K/mm3 (0.00-0.23); BASOPHILS PERCENT AUTO 1 % (0-2); EOSINOPHILS ABSOLUTE AUTO 0.13 K/mm3 (0.00-0.68); EOSINOPHILS PERCENT AUTO 1 % (0-6); Hematocrit 37.3 % (37.0-53.0); Hemoglobin 12.7 g/dL (13.5-17.5); IMMATURE GRAN PERCENT AUTO 1 % (0-1); LYMPHOCYTES ABSOLUTE AUTO 0.46 K/mm3 (0.84-5.20); LYMPHOCYTES PERCENT AUTO 3 % (21-46); MONOCYTES PERCENT AUTO 8 % (4-13); Mean Corpuscular HGB 30.2 pg (26.0-34.0); Mean Corpuscular Volume 89 fL (80-100); Mean Platelet Volume 10.2 fL (9.1-12.4); NEUTROPHILS ABSOLUTE AUTO 12.43 K/mm3 (1.96-9.15); NEUTROPHILS PERCENT AUTO 86 % (41-73); Platelet Count 217 K/mm3 (150-400); RDW Coefficient Variation 15.9 % (11.7-14.2); Red Blood Cell Count 4.21 M/mm3 (4.30-5.90); White Blood Cell Count 14.44 K/mm3 (4.00-11.30)
[2022-09-03 12:19] LABS: Albumin, Blood 3.3 g/dL (3.4-5.0); Albumin/Globulin Ratio 0.9 (0.8-1.8); Bun/Creatinine Ratio 13.6 (12.0-20.0); Calcium, Blood 8.4 mg/dL (8.5-10.1); Creatinine, Blood 1.1 mg/dL (0.60-1.20); Globulin, Blood 3.7 g/dL (2.2-4.0); Potassium, Blood 3.6 mmol/L (3.5-5.5)
[2022-09-03 12:54] LABS: Influenza A, PCR NEGATIVE (NEGATIVE); Influenza B, PCR NEGATIVE (NEGATIVE); Resp Syncytial Virus, PCR NEGATIVE (NEGATIVE)
[2022-09-03 13:10] LABS: SARS-Cov-2 (COVID-19) PCR, MMC POSITIVE (NEGATIVE)
[2022-09-04 05:07] LABS: Hematocrit 35.3 % (37.0-53.0); Hemoglobin 12.1 g/dL (13.5-17.5); Mean Corpuscular HGB 29.9 pg (26.0-34.0); Mean Corpuscular HGB Conc 34.3 g/dL (31.5-36.5); Mean Corpuscular Volume 87 fL (80-100); Mean Platelet Volume 10.1 fL (9.1-12.4); Platelet Count 217 K/mm3 (150-400); RDW Coefficient Variation 15.9 % (11.7-14.2); RDW Standard Deviation 50.8 fL (35.1-46.3); Red Blood Cell Count 4.05 M/mm3 (4.30-5.90)
[2022-09-04 05:34] LABS: Magnesium, Blood 1.5 mg/dL (1.6-2.4)
[2022-09-04 05:37] LABS: Thyroid Stimulating Hormone 0.674 uIU/mL (0.360-4.800)
[2022-09-04 05:40] LABS: Albumin, Blood 2.8 g/dL (3.4-5.0); Albumin/Globulin Ratio 0.8 (0.8-1.8); Bilirubin, Total 0.8 mg/dL (0.1-1.0); Calcium, Blood 8.3 mg/dL (8.5-10.1); Globulin, Blood 3.7 g/dL (2.2-4.0); Potassium, Blood 3.7 mmol/L (3.5-5.5); Total Protein, Blood 6.5 g/dL (6.4-8.2)
[2022-09-04 05:41] LABS: Bun/Creatinine Ratio 17.1 (12.0-20.0)
--- NOTE | 2022-09-04 06:48 | NUR ---
PATIENT ARRIVED FROM ED. ABLE TO PIVOT TO BED WITH GAIT BELT AND TWO ASSIST. PATIENT ORIENTED X2, 3LNC, NO TELE, BRIEF AND URINAL WITH ASSIST. NO EVENTS OVERNIGHT
--- NOTE | 2022-09-04 19:17 | NUR ---
Pt resting comfortably in the bed. at bedside. Pt has no complaints. No issues today. Pt sleeping most of the day. Vital signs stable.
--- NOTE | 2022-09-05 18:30 | NUR ---
PATIENT A/OX2-3, ABLE TO FOLLOW COMMANDS. STRENGTH IMPROVED TODAY AND PATIENT ABLE TO GET UP WITH FWW, GB AND 1PA. VSS, WEANED TO 2LO2 TODAY. LUNGS DIMINISHED AND COARSE IN BASES, COUGHING UP LARGE AMOUNT OF THICK WHITE SPUTUM. SKIN INTACT. LARGE BM THIS SHIFT, INCONIENTN OF URINE AND WEARING ATTENDS. NO NEW CONCERNS THIS SHIFT. STATED THAT SHE WOULD LKE PATIENT TO GO TO A SNF D/T TO FREQUENT FALLS AT HOME.
[2022-09-06 04:52] LABS: PCO2 Venous 32.1 mmHg (38-42)
[2022-09-06 04:53] LABS: Base Excess Venous -0.8 mmol/L; Bicarbonate Venous 24.3 mmol/L (24.0-30.0)
[2022-09-06 04:54] LABS: pH Blood Venous 7.46 (7.34-7.37)
--- NOTE | 2022-09-06 07:11 | NUR ---
PT SITTING IN THE CHAIR, NO S/S OF ACUTE DISTRESS, SAFETY MEASURES IN PLACE REPORT GIVEN TO ON COMING NURSE
[2022-09-06 08:16] LABS: Bun/Creatinine Ratio 34.5 (12.0-20.0); Calcium, Blood 8.6 mg/dL (8.5-10.1); Creatinine, Blood 0.87 mg/dL (0.60-1.20); Potassium, Blood 4.2 mmol/L (3.5-5.5)
--- NOTE | 2022-09-06 18:30 | NUR ---
PATIENT A/O TO SELF AND FAMLY ONLY. VISUAL HALLUCINATIONS THIS AM, BUT CLEARED BY THE AFTERNOON. D/C ORDERS PLACED FOR HOME WITH HOME HEALTH, BUT HAD CONCERNS ABOUT HIS SAFETY AT HOME DUE TO RECENT FALLS. PT ORDERED, BUT WERE UNABLE TO SEE PATIENT TODAY. DC ON HOLD UNTIL PT CAN EVAL PATIENT. REMAINS ON 2LO2 VIA NC. TYLENOL GIVEN X1 TO TREAT R SHOULDER PAIN. AMBULATING WITH FWW, GB AND [address] ASSIST[address] FALL PRECAUTIONS IN PLACE. INCONTINENT OF URINE, WEARING ATTENDS. TOLERATING DIET.
--- NOTE | 2022-09-07 03:27 | NUR ---
Neuro Confused about situation, place and purpose. Forgetful and impulsive with multiple bed exit alarms through the night. Noted with multiple episodes of hallucinations stating he sees spiders on table and tucker, also sees people that are not in the room. Resp On Room air and maintainig sats >92% Lung sounds clear bilateral lobes with interminent non-productive cough. CV HR 78, regular. Heart sounds audible s1s2 with no adventitious sounds. No edema noted. Pulses palpable bilateral lower and upper extrimities. GI Abdomen soft flat and non, distended . ABDominal sounds active in all quadrants, and passing flaturent. Denies abd pain, nausea or vomiting. Swallows medications whole and eats independently with set up assist. Voids in urinal vero urine without pain. Musc Ambulates around room utilizing rolling walker. Plan DC home following PT/OT evaluation.
--- NOTE | 2022-09-07 06:41 | NUR ---
PATIENT ARRIVED IN ROOM 348 AT 0615. RESTING IN BED COMFORTABLY. PATIENT CALLED HIS AND UPDATED HER ON ROOM CHANGE. REQUESTED WE TURN PHONE OFF SO HE CAN REST. PATIENT ON CAMERA MONITOR.
--- NOTE | 2022-09-07 19:29 | NUR ---
SUMMARY- PT ALERT TO SELF, PLACE AND DATE, THAN ASKED "WHAT IS THAT SMOKING IN MY CHAIR"? PT HAS PERIODS OF HALLUCINATION. PT UP IN CHAIR MOST OF THE DAY. TOLERATING FOOD AND FLUIDS. ON OCCASION TRIES TO GET UP UNATTENDED, VIDIO MONITOR IN USE. PT HAD DC ORDERD FROM 09/06, PT'S DIDN'T FEEL SHE COULD CARE FOR PT AT HOME BECAUSE OF IMMOBILITY AT TIMES AND PT'S INCREASED CONFUSION AND STM LOSS. ATTEMPT AT [place] [facility] DECLINED. AWARE PT NEEDS TO BE DISCHARGED TOMORROW TO HOME.
--- NOTE | 2022-09-08 05:21 | NUR ---
SUMMARY: NO ACUTE EVENTS OVERNIGHT. PATIENT AMBULATES 1X ASSIST WITH WALKER. PATIENT AOX2 HAVING VISUAL HALLUCINATIONS. VSS. NO COMPLAINTS OVERNIGHT. CALL LIGHT IN REACH BED IN LOWEST POSITION, ALARM ON.
--- NOTE | 2022-09-08 18:11 | NUR ---
SUMMARY- PT ALERT TO SELF AND FAMILY- UP TO CHAIR FOR MEALS SBA TO BATHROOM. MOSTLY GETS OOB UNATTENDED OR CHAIR SETTING OFF ALARMS. FORGETFUL, FREQ TRIES TO GET OUT ALONE. STEADY ON FEET TO BATHROOM, OCC MIS-STEP. PT TOLERATING FOOD AND FLUIDS. CONTINANT OF BLADDER. LAST BM 09/06. ARTHRITIC PAIN COVERED WITH TYLENOL. PT STATES PARTIAL RELEIF, BUT STILL PAINFUL AND STIFF EVEN AFTER TYLENOL. PT'S REFUSED TO TAKE HIM HOME, DISCHARGE WRITTEN 09/06- STATES SHE WILL TAKE HIM HOME ONCE DAUGHTER IS HERE FROM [place] 09/09- DR YI IS AWARE OF FAMILYS REFUSAL TO TAKE THE PT HOME FOR DC.
[2022-09-09 05:04] LABS: BASOPHILS ABSOLUTE AUTO 0.03 K/mm3 (0.00-0.23); BASOPHILS PERCENT AUTO 0 % (0-2); EOSINOPHILS ABSOLUTE AUTO 0.02 K/mm3 (0.00-0.68); EOSINOPHILS PERCENT AUTO 0 % (0-6); Hemoglobin 12.5 g/dL (13.5-17.5); IMMATURE GRAN PERCENT AUTO 6 % (0-1); LYMPHOCYTES ABSOLUTE AUTO 0.81 K/mm3 (0.84-5.20); LYMPHOCYTES PERCENT AUTO 6 % (21-46); MONOCYTES ABSOLUTE AUTO 1.69 K/mm3 (0.16-1.47); MONOCYTES PERCENT AUTO 12 % (4-13); Mean Corpuscular HGB 29.6 pg (26.0-34.0); Mean Corpuscular HGB Conc 33.8 g/dL (31.5-36.5); Mean Corpuscular Volume 88 fL (80-100); Mean Platelet Volume 10.1 fL (9.1-12.4); NEUTROPHILS ABSOLUTE AUTO 10.99 K/mm3 (1.96-9.15); NEUTROPHILS PERCENT AUTO 76 % (41-73); Platelet Count 314 K/mm3 (150-400); RDW Coefficient Variation 15.7 % (11.7-14.2); RDW Standard Deviation 49.8 fL (35.1-46.3); Red Blood Cell Count 4.22 M/mm3 (4.30-5.90); White Blood Cell Count 14.44 K/mm3 (4.00-11.30)
--- NOTE | 2022-09-09 05:21 | NUR ---
A/OX1-2; SELF ONLY AT THIS TIME. CALM AND COOPERATIVE CURRENTLY. C/O 10/10 PAIN (PATIENT ATTRIBUTES TO ARTHRITIS) IN BILAT KNEES; PRN TYLENOL GIVEN AND HEAT PAD INITIATED; HELPFUL PER PATIENT. TELE: SR WITH PVCs, HR IN 80s. PLAN IN PLACE TO DC HOME (TO AND DAUGHTER) IN AM. SLEEP PROMOTED. CALL LIGHT IN REACH; ENCOURAGED TO MAKE NEEDS KNOWN. BED ALARM SET.
[2022-09-09] MEDS ORDERED: MOME220I INH (11:59)
[2022-09-09] MEDS ORDERED: DECADRON6 M1 PO (12:00)
--- NOTE | 2022-09-09 14:20 | NUR ---
PATIENT DISCHARGED TO HOME VIA W/C TRANSPORT/AMBULANCE. IV SALINE LOCK REMOVED WOTHOUT INCIDENT. VERBALIZED UNDERSTANDING OF D/C INSTRUCTIONS. OFF UNIT AT 1312 VIA W/C. NO PERSONAL BELONGINGS LEFT BEHIND IN ROOM.
== END 2022-09-09 13:11 | DRG 178 ==
LOC: ER 11:42 → ERHOLD 16:39 → MEDS 16:39 → ENPENDDIS 09-06 16:25 → MEDS 09-07 06:21
PROVIDERS: Family Medicine; Internal Medicine; Physician Assistant; ADMIT Internal Medicine
PROC: 3E0333Z Introduction of Anti-inflammatory into Peripheral Vein, Percutaneous Approach (ICD-10-PCS; principal; 2022-09-03)
DX: U07.1 COVID-19 (principal); D84.821 Immunodeficiency due to drugs; J44.1 Chronic obstructive pulmonary disease with (acute) exacerbation; G93.49 Other encephalopathy; M06.9 Rheumatoid arthritis, unspecified; K21.9 Gastro-esophageal reflux disease without esophagitis; F03.90 Unspecified dementia, unspecified severity, without behavioral disturbance, psychotic disturbance, mood disturbance, and anxiety; F32.A Depression, unspecified; I10 Essential (primary) hypertension; E78.5 Hyperlipidemia, unspecified; G47.33 Obstructive sleep apnea (adult) (pediatric); T50.995A Adverse effect of other drugs, medicaments and biological substances, initial encounter; Z96.642 Presence of left artificial hip joint; Z96.612 Presence of left artificial shoulder joint; Z79.899 Other long term (current) drug therapy; Z79.811 Long term (current) use of aromatase inhibitors; Z79.2 Long term (current) use of antibiotics; Z79.52 Long term (current) use of systemic steroids; Z87.891 Personal history of nicotine dependence; Z98.890 Other specified postprocedural states; Z87.19 Personal history of other diseases of the digestive system; W01.198A Fall on same level from slipping, tripping and stumbling with subsequent striking against other object, initial encounter
CPT/HCPCS: 0241U; 36415; 70450; 71046; 80048; 80053; 82803; 83605; 83735; 83880; 84145; 84443; 85025; 85027; 87040; 93005; 93010; 94640; 94664; 94760; 94761; 96365; 96375; 97110; 97116; 97162; 97530; 99285-25; A9270; J0456; J0696; J1100; J1650; J3475; J7050

== ENCOUNTER 2023-07-18 13:25 | Observation (INO) | payer OTHER ==
[~2023-07-18] VITALS: Ht 175.3 cm; Wt 90.1 kg
[~2023-07-18 13:25] MED LIST changes: +DECADRON6 M1 PO; +FOLI1 PO; -FOLI400 PO; +MOME220I INH
[2023-07-18 14:21] LABS: BASOPHILS ABSOLUTE AUTO 0.12 K/mm3 (0.00-0.23); BASOPHILS PERCENT AUTO 1 % (0-2); EOSINOPHILS ABSOLUTE AUTO 0.09 K/mm3 (0.00-0.68); EOSINOPHILS PERCENT AUTO 1 % (0-6); Hematocrit 38.8 % (37.0-53.0); Hemoglobin 13.1 g/dL (13.5-17.5); IMMATURE GRAN ABSOLUTE AUTO 0.04 K/mm3 (0.00-0.10); IMMATURE GRAN PERCENT AUTO 0 % (0-1); LYMPHOCYTES ABSOLUTE AUTO 1.39 K/mm3 (0.84-5.20); LYMPHOCYTES PERCENT AUTO 14 % (21-46); MONOCYTES ABSOLUTE AUTO 0.74 K/mm3 (0.16-1.47); MONOCYTES PERCENT AUTO 8 % (4-13); Mean Corpuscular HGB 31.5 pg (26.0-34.0); Mean Corpuscular HGB Conc 33.8 g/dL (31.5-36.5); Mean Corpuscular Volume 93 fL (80-100); NEUTROPHILS ABSOLUTE AUTO 7.36 K/mm3 (1.96-9.15); NEUTROPHILS PERCENT AUTO 76 % (41-73); Platelet Count 228 K/mm3 (150-400); RDW Coefficient Variation 12.8 % (11.7-14.2); RDW Standard Deviation 43.8 fL (35.1-46.3); Red Blood Cell Count 4.16 M/mm3 (4.30-5.90); White Blood Cell Count 9.74 K/mm3 (4.00-11.30)
[2023-07-18 14:54] LABS: Albumin, Blood 3.6 g/dL (3.4-5.0); Albumin/Globulin Ratio 1.1 (0.8-1.8); Bilirubin, Total 0.8 mg/dL (0.1-1.0); Bun/Creatinine Ratio 14.8 (12.0-20.0); Calcium, Blood 9.1 mg/dL (8.5-10.1); Creatinine, Blood 1.08 mg/dL (0.60-1.20); Globulin, Blood 3.3 g/dL (2.2-4.0); Potassium, Blood 4.2 mmol/L (3.5-5.5); Total Protein, Blood 6.9 g/dL (6.4-8.2)
--- NOTE | 2023-07-18 18:27 | NUR ---
THIS RN ATTEMPTED TO GET REPORT AT 1722, TOLD RN WOULD CALL BACK. REPORT RECIEVED FROM ED RN AT 1815. ED RN INFORMED THIS RN THAT HOLDING PARAMETERS FOR METOPROLOL WERE FOR SBP <180 SO 1700 MED WAS HELD. THIS RN CALLED MD FOR CLARIFICATION. HOLD PARAMETERS CHANGED TO HOLD IF SBP <100. THIS RN [address] NEW ORDER PER MD REQUEST. OLD ORDER TO BE CHARTED AGAINST DUE TO NEW ORDER.
[2023-07-18 18:46] LABS: Anti-Xa UFH, PHA Monitoring <0.10 IU/mL; International Normalized Ratio 1.02; Prothrombin Time Results 10.7 Sec (9.7-11.5)
[2023-07-18 19:59] VITALS: BP 177/72
[2023-07-18 23:36] VITALS: BP 156/79
[2023-07-19] VITALS (9 sets, daily range): BP systolic 102–168; BP diastolic 64–109
[2023-07-19 01:16] LABS: Hematocrit 36.9 % (37.0-53.0); Hemoglobin 12.5 g/dL (13.5-17.5); Mean Corpuscular HGB 31.4 pg (26.0-34.0); Mean Corpuscular HGB Conc 33.9 g/dL (31.5-36.5); Mean Corpuscular Volume 93 fL (80-100); Mean Platelet Volume 11.1 fL (9.1-12.4); Platelet Count 203 K/mm3 (150-400); RDW Coefficient Variation 12.8 % (11.7-14.2); RDW Standard Deviation 43.4 fL (35.1-46.3); Red Blood Cell Count 3.98 M/mm3 (4.30-5.90); White Blood Cell Count 9.34 K/mm3 (4.00-11.30)
[2023-07-19 01:25] LABS: Base Excess Venous 0 mmol/L; Bicarbonate Venous 24.7 mmol/L (24.0-30.0); PCO2 Venous 34.4 mmHg (38-42); pH Blood Venous 7.45 (7.34-7.37)
[2023-07-19 01:41] LABS: Albumin, Blood 3.3 g/dL (3.4-5.0); Anion Gap 6 mmol/L (6-16); Blood Urea Nitrogen 19 mg/dL (8-24); Bun/Creatinine Ratio 20.9 (12.0-20.0); CO2, Blood 25 mmol/L (21-32); Calcium, Blood 8.6 mg/dL (8.5-10.1); Chloride, Blood 112 mmol/L (98-108); Creatinine, Blood 0.91 mg/dL (0.60-1.20); Glomerular Filtration Rate 86 (60-); Glucose, Blood 98 mg/dL (70-99); Magnesium, Blood 1.8 mg/dL (1.6-2.4); Phosphorus, Blood 2.5 mg/dL (2.5-4.9); Potassium, Blood 3.5 mmol/L (3.5-5.5); Sodium, Blood 143 mmol/L (136-145)
--- NOTE | 2023-07-19 04:35 | NUR ---
SHIFT SUMMARY THIS RN ASSUMED CARE OF PATIENT AT 1900. REPORT TAKEN FORM MORENA EUGENE. PT ARRIVED TO UNIT PRIOR TO THIS RN COMING ON SHIFT AT 1830. PT A&O X4. ABLE TO MAKE NEEDS KNOWN. PT WITH ONCE EPISODE OF TACHYCARDIA DURING THIS SHIFT AROUND 0400 ON TELE WITH HR 120-130'S. PT DENIES CHEST PAIN/PRESSURE. BP STABLE DURING EVENT. APPEARED TO BE SINUS TACH ON MONITOR. HR DECREASED TO 60-70'S WITHOUT INTERVENTION. OTHERWISE VITALS HAVE BEEN STABLE. ON RA WITH SPO2 >92%. AFEBRILE. JAVIER. PPP. BS+. BED IN LOWEST POSITION AND CALL LIGHT WITHIN REACH. THIS RN WILL REPORT TO ONCOMING DAYSHIFT RN.
--- NOTE | 2023-07-19 07:40 | NUR ---
INITIAL ASSESSMENT: Patient is resting with eyes closed, resp E/U. He wakes easily with verbal stimuli. He is alert and oriented x4. He reports pain in his left lower back from falling, Tylenol given. HRR, currently he is SR with PACs and PVCs, he does have frequent runs of sinus tach with his rate going up into the 130s-patient is asymptomatic. Patient states, "this has been going on for a while, I don't know why everyone is getting so excited about it." He denies CP, SOB, and dizziness at this time. LS CTA, Biox is high 90s on RA. BT+. PPP. Patient denies needs at this time and states he would just like to sleep. Call light in reach.
--- NOTE | 2023-07-19 17:22 | NUR ---
Summary: Patient has been alert and oriented T/O the shift, with periods of forgetfulness He had one C/O pain in his left lower back, pain was relieved by tylenol and a heating pad. HRR, his rate has mostly been in the 70s-80s with very occasional periods of tachycardia up into the [id number] patient was asymptomatic with tachycardic episodes. Dr. Gilbert started the patient on Metoprolol 25 mg PO BID, first dose given around 1600. LS CTA, Biox has been high 90s on RA. BT+. PPP. VSS. PT/OT came to see the patient he was able to ambulate in the hallway without any C/O dizziness, recommendations for home with home health. No acute changes this shift. Will report to oncoming RN.
[2023-07-20] VITALS (8 sets, daily range): BP systolic 115–154; BP diastolic 59–87
--- NOTE | 2023-07-20 00:25 | NUR ---
ASSUMPTION OF CARE/PT UPDATE THIS RN ASSUMED CARE OF PATIENT AT 1900. PT NOTED TO BECOME AGGITATED AND CONFUSED, PULLING AT LINES AND ATTEMPTING TO LOOK FOR HIS "PILLS", WHILE THINKING THAT HE WAS AT HOME. PT NOT ABLE TO BE REDIRECTED BY STAFF. PT EVENTUALLY SAT DOWN IF HE "COULD GET SOMETHING FOR SLEEP". PT WAS PREVIOUSLY MEDICATED PER EMAR PRIOR TO SHIFT CHANGE WITH TYLENOL. CALL PLACED TO MD ALCAZAR REGARDING AGGITATION. ORDER FOR 25MG TRAZADONE; GIVEN PER EMAR. PT APPEARED TO REST AND REMAIN IN BED AFTER MEDICATION; SEE EMAR. PT BECAME AGGITATED AGAIN AROUND 2200. MEDICATED PER EMAR FOR PAIN REQUESTED. PT WAS A&O DURING THIS EPISODE OF AGGITATION. PT WAS ABLE TO GET BACK IN BED AFTER MEDICATION. OTHERWISE VITALS REMAIN STABLE. SB/SR WITH HR 50-60'S WHILE AT REST. BED IN LOWEST POSITION, BED ALARM ON, CALL LIGHT WITHIN REACH. HEP GTT INFUSING PER EMAR. AROUND
--- NOTE | 2023-07-20 05:19 | NUR ---
PATIENT UPDATE/SHIFT SUMMARY AT APPROXIMATELY 0300 PATIENT BECAME AGGITATED AND WAS ATTEMPTING TO GET OOB. PT CONFUSED ABOUT WHERE HE WAS, THINKING THAT HE WAS AT HOME. PT STATING THAT HE NEEDED "TO GET HIS CAT THAT'S RUNNNING AROUND". PT UNABLE TO BE REORIENTED. PT NOT FOLLOWING COMMANDS. BEGAN YELLING AT STAFF. REMOVED MONITORING DEVICES/TELE. MD CHANG NOTIFIED. WITH ORDER FOR IM ZYPREXA. GIVEN PER EMAR. AT TIME OF WRITING THIS NOTE PATIENT APPEARS TO BE SLEEPING. ON RA WITH SPO2 >92%. SB ON MONITOR WITH HR 50'S WHILE AT REST, PAC'S/PVC'S NOTED. OCCASIONAL TACHYCARDIA NOTED WITH HR 130'S. BP STABLE. SEE ASSESSMENT. BED IN LOWEST POSITION AND CALL LIGHT WITHIN REACH. THIS RN WILL REPORT TO ONCOMING DAYSHIFT RN.
[2023-07-20 05:50] LABS: Hematocrit 34.8 % (37.0-53.0); Hemoglobin 11.9 g/dL (13.5-17.5); Platelet Count 210 K/mm3 (150-400)
--- NOTE | 2023-07-20 11:00 | NUR ---
care assumption this rn assumed care at 0700. vital signs stable. patient has been sinusbrady, range 54-high 60s. per md serna, give metoprolol despite patient heart rate touching into the mid to high 50s. patient is sleepy at the start of shift and falls back asleep quickly, after stating he is in his bedroom. patient oriented to self and person. patient when waking up has become more oriented to self person and place. patient able to ambulate to bathroom with a one person assist and front wheel walker. patient has bed alarm and chair alarm on when in chair. see shift assessment for further detials. md serna by and discussed plan; increasing motoprolol, replacing mag and potassium. plan of care is up to date
[2023-07-20] MEDS ORDERED: VENL150ER PO (14:16)
[2023-07-20] MEDS ORDERED: LISI20 PO (14:16)
--- NOTE | 2023-07-20 17:46 | NUR ---
shift summary neuro remains unchanged. no acute changes. this rn tried to get a ekg when patient went into run of svt up to 135 and stayed there for approx 2 mins, but by the time it was set up patient was back into sinus natalie. this rn left stickers on and will inform oncoming rn to try to get one if patient goes back into it. patient had two episodes this shift. no symptoms with it. plan is up to date.
--- NOTE | 2023-07-20 20:55 | NUR ---
PATIENT UPDATE CALL PLACED TO HOSPITALIST IAN REGARDING NO PARAMETERS ON INCREASED PO METOPROLOL FOR THIS EVENING. PT WITH HR MAINTAININGIN THE LOW 50'S AT REST AND OCCASIONALLY TOUCHED 48-49 ON THE MONITOR. NO EPISODES OF TACHYCARDIA NOTED YET THIS SHIFT. HOSPITALIST WITH ORDER TO HOLD EVENING DOSE OF METOPROLOL AND DAY TEAM WILL REASSESS IN THE AM. OTHER VITALS STABLE AT THIS TIME. BED IN LOWEST POSITION AND CALL LIGHT WITHIN REACH.
[2023-07-21 03:40] VITALS: BP 151/79
[2023-07-21 04:15] LABS: BASOPHILS ABSOLUTE AUTO 0.12 K/mm3 (0.00-0.23); BASOPHILS PERCENT AUTO 2 % (0-2); EOSINOPHILS ABSOLUTE AUTO 0.24 K/mm3 (0.00-0.68); EOSINOPHILS PERCENT AUTO 3 % (0-6); Hematocrit 37.9 % (37.0-53.0); Hemoglobin 12.6 g/dL (13.5-17.5); IMMATURE GRAN ABSOLUTE AUTO 0.02 K/mm3 (0.00-0.10); IMMATURE GRAN PERCENT AUTO 0 % (0-1); LYMPHOCYTES ABSOLUTE AUTO 1.31 K/mm3 (0.84-5.20); LYMPHOCYTES PERCENT AUTO 17 % (21-46); MONOCYTES ABSOLUTE AUTO 0.88 K/mm3 (0.16-1.47); MONOCYTES PERCENT AUTO 11 % (4-13); Mean Corpuscular HGB 31.3 pg (26.0-34.0); Mean Corpuscular HGB Conc 33.2 g/dL (31.5-36.5); Mean Corpuscular Volume 94 fL (80-100); Mean Platelet Volume 10.9 fL (9.1-12.4); NEUTROPHILS ABSOLUTE AUTO 5.35 K/mm3 (1.96-9.15); NEUTROPHILS PERCENT AUTO 68 % (41-73); Platelet Count 195 K/mm3 (150-400); RDW Coefficient Variation 12.9 % (11.7-14.2); RDW Standard Deviation 44.3 fL (35.1-46.3); Red Blood Cell Count 4.02 M/mm3 (4.30-5.90); White Blood Cell Count 7.92 K/mm3 (4.00-11.30)
--- NOTE | 2023-07-21 04:25 | NUR ---
SHIFT SUMMARY PT LETHARGIC MOST OF THIS SHIFT BUT ABLE TO BE AROUSED WITH VERBAL STIMULI. SEE ASSESSMENT. PT BECAME MORE ALERT AROUND 0400 THIS AM AND ANSWERED ALL QUESTIONS APPROPRIATELY. BP STABLE. SB/SR WITH HR MAINTAINING MOSTLY IN THE 50'S. SEE PREVIOUS NOTE REGARDING PROVIDER COMMUNICATION. ON RA WITH SPO2 >92%. NO EPISODES OF TACHYCARDIA NOTED ON TELE. PT WITH EPISODES OF INCONTINENCE DURING THIS SHIFT. BED IN LOWEST POSITION AND CALL LIGHT WITHIN REACH. THIS RN WILL REPORT TO ONCOMING DAYSHIFT RN.
[2023-07-21 04:34] LABS: Calcium, Blood 8.8 mg/dL (8.5-10.1); Creatinine, Blood 0.94 mg/dL (0.60-1.20); Magnesium, Blood 2.3 mg/dL (1.6-2.4); Potassium, Blood 3.5 mmol/L (3.5-5.5)
[2023-07-21 08:56] VITALS: BP 138/62
[2023-07-21] MEDS ORDERED: METO25 PO (11:52)
[2023-07-21] MEDS ORDERED: POTCHL20ER PO (11:53)
--- NOTE | 2023-07-21 12:47 | NUR ---
discharge note this rn assumed care at 0700. vital signs stable. tele sinusbrady. patient is sleepy at the start of shift but is arousable. patient woke up more after breakfast and is alert and oriented x4. patient using call light appropriately to make needs known. patient reports back pain and received tylenol and this provided relief. see shift assessment for further detials. patient worked with physical therapy this am. patient walking around unit. md serna in to see patient and plan to discharge. this rn went over discharge education with patient and . patient and verbalized understanding [facility]. patient and verbalized understanding of diagnosis and new medications and what medications to stop. medications fax to [facility], per patient and requestion. cardiology consult faxed to cardiology office. patient left at 1236 with all belongings and in no distress.
== END 2023-07-21 12:36 | disposition home or self-care (01) ==
LOC: ER 13:25 → PCU 13:26 → ER 16:43 → PCU 16:43
PROVIDERS: Emergency Medicine; Internal Medicine; ADMIT Internal Medicine
DX: I48.0 Paroxysmal atrial fibrillation (principal); E83.42 Hypomagnesemia; E87.6 Hypokalemia; G47.33 Obstructive sleep apnea (adult) (pediatric); K21.9 Gastro-esophageal reflux disease without esophagitis; I10 Essential (primary) hypertension; G31.84 Mild cognitive impairment of uncertain or unknown etiology; J44.9 Chronic obstructive pulmonary disease, unspecified; F32.A Depression, unspecified; Z87.891 Personal history of nicotine dependence
CPT/HCPCS: 36415; 80048; 80053; 80069; 82803; 83735; 84443; 84484; 85014; 85018; 85025; 85027; 85049; 85520; 85610; 85730; 93005; 93010; 94760; 94762; 96372; 96374; 96375; 97116; 97162; 97166; 97530; 97535; 99285-25; A9270; C8929; G0378; J1644; J3475; J3480; J7050; Q9957

== ENCOUNTER 2023-10-20 13:52 | Emergency (ER) | payer MEDICARE ==
[~2023-10-20] VITALS: Ht 177.8 cm; Wt 88.5 kg
[~2023-10-20 13:52] MED LIST changes: +METO25 PO; +POTCHL20ER PO
[2023-10-20 15:13] LABS: BASOPHILS ABSOLUTE AUTO 0.06 K/mm3 (0.00-0.23); BASOPHILS PERCENT AUTO 1 % (0-2); EOSINOPHILS ABSOLUTE AUTO 0.04 K/mm3 (0.00-0.68); EOSINOPHILS PERCENT AUTO 1 % (0-6); Hematocrit 37.2 % (37.0-53.0); Hemoglobin 12.3 g/dL (13.5-17.5); IMMATURE GRAN ABSOLUTE AUTO 0.03 K/mm3 (0.00-0.10); IMMATURE GRAN PERCENT AUTO 0 % (0-1); LYMPHOCYTES PERCENT AUTO 9 % (21-46); MONOCYTES ABSOLUTE AUTO 0.46 K/mm3 (0.16-1.47); MONOCYTES PERCENT AUTO 6 % (4-13); Mean Corpuscular HGB 30.8 pg (26.0-34.0); Mean Corpuscular HGB Conc 33.1 g/dL (31.5-36.5); Mean Corpuscular Volume 93 fL (80-100); NEUTROPHILS ABSOLUTE AUTO 6.22 K/mm3 (1.96-9.15); NEUTROPHILS PERCENT AUTO 83 % (41-73); Platelet Count 212 K/mm3 (150-400); RDW Coefficient Variation 14.2 % (11.7-14.2); RDW Standard Deviation 47.8 fL (35.1-46.3); Red Blood Cell Count 3.99 M/mm3 (4.30-5.90); White Blood Cell Count 7.51 K/mm3 (4.00-11.30)
[2023-10-20 15:24] LABS: Albumin, Blood 3.3 g/dL (3.4-5.0); Bilirubin, Total 0.7 mg/dL (0.1-1.0); Bun/Creatinine Ratio 23.5 (12.0-20.0); Calcium, Blood 9.1 mg/dL (8.5-10.1); Creatinine, Blood 1.15 mg/dL (0.60-1.20); Globulin, Blood 3.2 g/dL (2.2-4.0); Magnesium, Blood 1.8 mg/dL (1.6-2.4); Potassium, Blood 4.3 mmol/L (3.5-5.5); Total Protein, Blood 6.5 g/dL (6.4-8.2)
[2023-10-20 17:00] VITALS: BP 136/75
== END 2023-10-20 17:14 | disposition home or self-care (01) ==
LOC: ER 13:52
PROVIDERS: Physician Assistant
DX: I95.1 Orthostatic hypotension (principal); M06.9 Rheumatoid arthritis, unspecified; I10 Essential (primary) hypertension; J44.9 Chronic obstructive pulmonary disease, unspecified; E78.5 Hyperlipidemia, unspecified; Z79.51 Long term (current) use of inhaled steroids; Z87.891 Personal history of nicotine dependence; Z79.899 Other long term (current) drug therapy
CPT/HCPCS: 71046; 80053; 83735; 84484; 85025; 93005; 93010; 99284-25

== ENCOUNTER 2024-03-17 10:24 | Emergency (ER) | payer MEDICARE ==
[~2024-03-17] VITALS: Ht 177.8 cm; Wt 81.7 kg
[2024-03-17 10:38] VITALS: BP 122/72
[2024-03-17] MEDS ORDERED: ASPI81CH PO (11:01)
[2024-03-17] MEDS ORDERED: Amoxicillin875 MG PO (11:47)
[2024-03-17] MEDS ORDERED: Floxin10 ML BOTHEARS (11:47)
== END 2024-03-17 12:04 | disposition home or self-care (01) ==
LOC: ER 10:24
DX: H66.93 Otitis media, unspecified, bilateral (principal); H60.93 Unspecified otitis externa, bilateral; K21.9 Gastro-esophageal reflux disease without esophagitis; I10 Essential (primary) hypertension; J44.9 Chronic obstructive pulmonary disease, unspecified; E78.5 Hyperlipidemia, unspecified; G47.30 Sleep apnea, unspecified; Z87.891 Personal history of nicotine dependence; Z79.899 Other long term (current) drug therapy
CPT/HCPCS: 99282

== ENCOUNTER 2024-09-25 05:13 | Emergency (ER) | payer MEDICARE ==
[~2024-09-25] VITALS: Ht 177.8 cm; Wt 91.6 kg
[~2024-09-25 05:13] MED LIST changes: +ASPI81CH PO; +Amoxicillin875 MG PO; +Floxin10 ML BOTHEARS
[2024-09-25 06:21] LABS: CORONAVIRUS COVID-19 AG Negative (NEGATIVE); INFLUENZA A AG Positive (NEGATIVE); INFLUENZA B AG Negative (NEGATIVE)
[2024-09-25] MEDS ORDERED: Acetaminophen 500 MG Tab PO ONE ×2 (06:25→09:40)
[2024-09-25] MEDS ORDERED: OxyCODONE HCL 5 MG TAB PO ONE (09:40)
[2024-09-25 09:45] VITALS: BP 132/78
== END 2024-09-25 09:51 | disposition home or self-care (01) ==
LOC: ER 05:13
PROVIDERS: Emergency Medicine
DX: J10.1 Influenza due to other identified influenza virus with other respiratory manifestations (principal); R53.1 Weakness; I10 Essential (primary) hypertension; E78.5 Hyperlipidemia, unspecified; K21.9 Gastro-esophageal reflux disease without esophagitis; G47.30 Sleep apnea, unspecified; Z79.82 Long term (current) use of aspirin; Z79.899 Other long term (current) drug therapy
CPT/HCPCS: 87428-QW; 99284; A9270

== ENCOUNTER 2024-09-28 11:25 | Inpatient (IN) | payer OTHER, MEDICARE ==
[~2024-09-28] VITALS: Ht 172.7 cm; Wt 91.1 kg
[2024-09-28] MEDS ORDERED: Ipratropium Bromide INH 0.02% 0.5 mg/2.5ML Vial INH SCH (11:45)
[2024-09-28] MEDS ORDERED: Albuterol 2.5 MG/3 ML VIAL INH SCH (11:45)
[2024-09-28] MEDS ORDERED: MethylPREDNISolone Sod Succ 125 MG Vial IV ONE (11:45)
[2024-09-28 11:47] LABS: Base Excess Venous -5.4 mmol/L; Bicarbonate Venous 20.2 mmol/L (24.0-30.0); PCO2 Venous 39.5 mmHg (38-42); pH Blood Venous 7.33 (7.34-7.37)
[2024-09-28 11:57] LABS: BASOPHILS ABSOLUTE AUTO 0.07 K/mm3 (0.00-0.23); BASOPHILS PERCENT AUTO 1 % (0-2); EOSINOPHILS ABSOLUTE AUTO 0.02 K/mm3 (0.00-0.68); EOSINOPHILS PERCENT AUTO 0 % (0-6); Hematocrit 33.2 % (37.0-53.0); Hemoglobin 11.1 g/dL (13.5-17.5); IMMATURE GRAN ABSOLUTE AUTO 0.04 K/mm3 (0.00-0.10); IMMATURE GRAN PERCENT AUTO 1 % (0-1); LYMPHOCYTES ABSOLUTE AUTO 0.98 K/mm3 (0.84-5.20); LYMPHOCYTES PERCENT AUTO 13 % (21-46); MONOCYTES ABSOLUTE AUTO 1.47 K/mm3 (0.16-1.47); MONOCYTES PERCENT AUTO 19 % (4-13); Mean Corpuscular HGB 30.2 pg (26.0-34.0); Mean Corpuscular HGB Conc 33.4 g/dL (31.5-36.5); Mean Corpuscular Volume 90 fL (80-100); Mean Platelet Volume 10.4 fL (9.1-12.4); NEUTROPHILS ABSOLUTE AUTO 5.07 K/mm3 (1.96-9.15); NEUTROPHILS PERCENT AUTO 66 % (41-73); Platelet Count 205 K/mm3 (150-400); RDW Coefficient Variation 15.1 % (11.7-14.2); RDW Standard Deviation 49.5 fL (35.1-46.3); Red Blood Cell Count 3.68 M/mm3 (4.30-5.90); White Blood Cell Count 7.65 K/mm3 (4.00-11.30)
[2024-09-28 12:12] LABS: Albumin/Globulin Ratio 0.9 (0.8-1.8); Bilirubin, Total 0.8 mg/dL (0.1-1.0); Bun/Creatinine Ratio 36.3 (12.0-20.0); Calcium, Blood 8.5 mg/dL (8.5-10.1); Creatinine, Blood 0.8 mg/dL (0.60-1.20); Globulin, Blood 3.4 g/dL (2.2-4.0); Potassium, Blood 3.3 mmol/L (3.5-5.5); Total Protein, Blood 6.4 g/dL (6.4-8.2)
[2024-09-28 12:26] LABS: CORONAVIRUS COVID-19 AG Negative (NEGATIVE); INFLUENZA A AG Positive (NEGATIVE); INFLUENZA B AG Negative (NEGATIVE)
[2024-09-28 14:50] LABS: Source, Urine Clean Catch
[2024-09-28 15:01] LABS: Appearance, Urine Hazy (Clear); Bilirubin, Urine Neg (Neg); Blood, Urine 5+ (Neg); Color, Urine Yellow (P-Yellow); Glucose Qualitative, Urine Neg (Neg); Ketones, Urine 3+ (Neg); Leukocyte Esterase, Urine Neg (Neg); Nitrite, Urine Neg (Neg); Protein, Urine 3+ (Neg); Specific Gravity, Urine 1.015 (1.003-1.022); Urobilinogen, Urine 1+ (Normal)
[2024-09-28 15:18] LABS: Bacteria Mod /hpf; Hyaline Casts 0-2 /lpf (0-2); Renal Epithelial Rare /hpf (0-Rare); Squamous Epithelial Cells Rare /hpf (Few); White Blood Cells, Urine 0-2 /hpf (0-5)
[2024-09-28] MEDS ORDERED: FLU VACC TS2024-25(6MOS UP)/PF 45 MCG/0.5 ML SYRINGE IM ONE (15:25)
[2024-09-28] MEDS ORDERED: Potassium Chloride 20 MEQ TabCR PO ONE (15:25)
[2024-09-28] MEDS ORDERED: CefTRIAXone Sodium 1,000 MG in NS 100 ML IV SCH (16:25)
[2024-09-28] MEDS ORDERED: NS 250 ML IV PRN (17:55)
[2024-09-28 18:30] VITALS: BP 156/74
--- NOTE | 2024-09-28 19:21 | NUR ---
ADMIT NOTE PATIENT BROUGHT UP FROM ER AT 1830. PUREWICK CONNECTED. ROOM AIR AT THIS TIME SATS AT 95%. 1-2 L PRN VIA NC WHILE ASLEEP. PATIENT AWAKE BUT LETHARGIC. VITALS TAKEN. IV ANTIBIOTIC STARTED. ORAL POTASSIUM WAS ORDERED IN ER X1 DOSE, ER NURSE HELD DUE TO LETHARGY. NO LONGER ABLE TO PULL FROM PYXIS, PATIENT IS STILL LETHARGIC PASSED ON TO ONCOMING NURSE IF WE CAN GET THIS CHANGED TO IV. IV TO RAC FLUSHED AND PATENT. NONBLANCHABLE REDNESS TO BILAT BUTTOCKS. ONCOMING NURSE WILL GRAB EXTRA PILLOWS TO REPOSITION. WHEN ASKING PATIENT ORIENTATION QUESTIONS HE ASNSWERS "I DONT KNOW" APRT FROM HIS NAME AND BIRTHDAY. BED ALARM ON PATIENT HISTORY COG IMPAIRMENT AND ORIENTATION STATUS.
[2024-09-28 20:24] VITALS: BP 143/72
[2024-09-28] MEDS ORDERED: Oseltamivir Phosphate 75 MG Cap PO SCH (21:00)
[2024-09-28] MEDS ORDERED: Lactobacil 2-S.Thermo-Bifido 1 1 Cap PO SCH (21:00)
[2024-09-29] MEDS ORDERED: Potassium Chloride 40 MEQ IV ONE (00:35)
[2024-09-29] MEDS ORDERED: Potassium Chloride 40 MEQ in NS 250 ML IV ONE (01:30)
[2024-09-29 03:54] VITALS: BP 159/68
[2024-09-29 06:46] LABS: Bun/Creatinine Ratio 43.7 (12.0-20.0); Calcium, Blood 9.1 mg/dL (8.5-10.1); Creatinine, Blood 0.62 mg/dL (0.60-1.20); Potassium, Blood 4.1 mmol/L (3.5-5.5)
[2024-09-29 07:07] VITALS: BP 154/73
[2024-09-29] MEDS ORDERED: Lisinopril 20 MG Tab PO SCH (09:00)
[2024-09-29] MEDS ORDERED: Enoxaparin 40 MG/0.4 ML SYR SC SCH (09:00)
[2024-09-29] MEDS ORDERED: Metoprolol Tartrate 25 MG Tab PO SCH (09:00)
[2024-09-29] MEDS ORDERED: Aspirin 81 MG Chew PO SCH (09:00)
[2024-09-29] MEDS ORDERED: Guaifenesin/Dextromethorphan Syrup 5 ML UDC PO PRN (11:30)
[2024-09-29] MEDS ORDERED: IPRAT-ALBUT 0.5-3 ML INH (14:09)
[2024-09-29] MEDS ORDERED: Prozac20 MG PO (14:09)
[2024-09-29] MEDS ORDERED: ALBU90OI INH (14:10)
[2024-09-29] MEDS ORDERED: PRAZ2 PO (14:12)
[2024-09-29] MEDS ORDERED: Q-Tussin100 MG/5 M PO (14:13)
[2024-09-29] MEDS ORDERED: VITAMIN B-121000 MCG PO (14:15)
[2024-09-29] MEDS ORDERED: LORA10ER PO (14:15)
[2024-09-29] MEDS ORDERED: FOLI1 PO (14:15)
[2024-09-29] MEDS ORDERED: ASMANEX110 MC3 INH (14:17)
[2024-09-29] MEDS ORDERED: Hair, Skin & N1 EACH PO (14:18)
[2024-09-29] MEDS ORDERED: FLUTICASONE-SA1 EAC1 INH (14:18)
[2024-09-29] MEDS ORDERED: OMEP20ER PO (14:19)
[2024-09-29 15:20] VITALS: BP 166/81
[2024-09-29] MEDS ORDERED: Ipratropium/Albuterol SulF 2.5-0.5MG/3 ML Amp INH PRN (15:50)
[2024-09-29] MEDS ORDERED: Mometasone/Formoterol MDI 200/5 mcg 13 GM INH SCH (16:00)
[2024-09-29] MEDS ORDERED: Albuterol HFA200 ACT/6.7 GM INH INH PRN (16:00)
[2024-09-29] MEDS ORDERED: FLUoxetine HCL 20 MG CAP PO SCH (16:00)
[2024-09-29] MEDS ORDERED: Folic Acid 1 MG TAB PO SCH (16:00)
[2024-09-29] MEDS ORDERED: Omeprazole 20 MG CapCR PO SCH (16:00)
--- NOTE | 2024-09-29 19:32 | NUR ---
SHIFT SUMMARY PRESCRIPTIONS FAXED FROM [place] [facility]. UPDATED IN CHART AND DR. ALCAZAR NOTIFIED. PT STOOD AT EDGE OF BED TODAY FOR A BIT AND WAS ABLE TO MARCH IN [place] SLIGHTLY. LIMITED ROM TO LEFT LEG. A/OX3-4. FORGETFUL AT TIMES. PUREWICK WAS REMOVED AND PATIENT HAS BEEN EDUCATED ON USE OF URINAL. WILL CALL FOR ASSISTANCE. CALL LIGHT IN REACH.
[2024-09-29 20:04] VITALS: BP 160/79
[2024-09-29] MEDS ORDERED: Mometasone Furoate Inhaler 220 mcg 14 ACT INH SCH (21:00)
[2024-09-29] MEDS ORDERED: Pravastatin Sodium 20 MG Tab PO SCH (21:00)
[2024-09-29] MEDS ORDERED: Multivitamins/Minerals TAB PO SCH (21:00)
[2024-09-29] MEDS ORDERED: Acetaminophen 325 MG TABLET PO PRN ×2 (21:00)
[2024-09-29] MEDS ORDERED: GuaiFENesin 600 MG TabCR PO SCH (21:00)
[2024-09-29] MEDS ORDERED: Tamsulosin HCl 0.4 MG Cap PO SCH (21:00)
[2024-09-29] MEDS ORDERED: Prazosin HCl 1 MG Cap PO SCH (21:00)
[2024-09-30 05:01] VITALS: BP 123/66
--- NOTE | 2024-09-30 06:56 | NUR ---
Rn summary: Patient is alert /oriented x3-4. Pt is cooperative . Lungs have crackles throughout. He has an occ productive cough. O2 at 2 liters during the night. Pt has rested well. He did c/o Left ankle hurting. It is sl swollen at the ankle bone on both ksides. not discolored. Less discomfort when sock removed and tylenol given. Uses urinal independantly. Pt sleepier this am. Arouses this am and took meds but right back to sleep. No diarrhea this shift. Pt remains in isolation for flu+
[2024-09-30 08:13] VITALS: BP 126/60
[2024-09-30] MEDS ORDERED: Cyanocobalamin 500 MCG Tab PO SCH (09:00)
--- NOTE | 2024-09-30 10:57 | NUR ---
KUSUM IS A ONE PERSON ASSIST FOR SAFETY. HE CALLS APPROPRIATELY WITH CALL LIGHT FOR ASSISTANCE WITH URINAL AT THE SIDE OF THE BED. HE IS A ONE PERSON ASSIST TO THE BEDSIDE CHAIR FOR BREAKFAST. HE WORKED WITH PT TODAY, AND AMBULATED OUT TO THE HALLWAY WITH A ONE PERSON ASSIST. BED ALARM/CHAIR ALARM FOR SAFETY. HIS OXYGEN IS 2L AT NIGHT PER NASAL CANULA BECAUSE HE DOESN'T TOLERATE OUR CPAP MASK. STRICT I'S AND O'S. A &O X 3-4. 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 HE STATED HE LIVES IN [place], AND SAID "WHICH IS [address] [place] OF [place], WHICH IS IN [facility]." PLEASANT AND COOPERATIVE WITH CARE.
--- NOTE | 2024-09-30 13:15 | NUR ---
RN SENT A NASOHARYNGEAL SWAB TO MICROBIOLOGY LAB, PER THE [facility] REQUEST FOR A REPEAT CULTURE TO CONFIRM INFLUENZA A.
[2024-09-30] MEDS ORDERED: GUAIASORB DM 2118 ML PO (14:50)
[2024-09-30] MEDS ORDERED: GUAI600T33 PO (14:51)
[2024-09-30] MEDS ORDERED: OSEL75CA PO (14:51)
[2024-09-30 15:21] VITALS: BP 128/69
[2024-09-30 20:04] VITALS: BP 138/67
--- NOTE | 2024-09-30 20:19 | NUR ---
KUSUM IS HERE FOR FLU A, DROPLET PRECAUTIONS. HE HAD A PLANNED DISCHARGE, WHICH IS NOW PENDING FOR TOMORROW. HE COMPLETED A HOME O2 EVAL, AND DOESN'T REQUIRE OXYGEN AT HOME. HE COMPLETED A PT EVAL, AND HE IS VERY APPROPRIATE FOR HOME HEALTH GIVEN HIS HISTORY OF FALLS AND CHRONIC LEFT LEG PAIN. PT WAS MEDICATED FOR PAIN ONCE DAY SHIFT WITH PRN TYLENOL, WHICH WAS SUFFICIENT PAIN CONTROL. HE IS A&O X3, FORGETFUL TO HIS OWN LIMITATIONS. BED ALARM ON FOR SAFETY. SBA WITH GB AND FWW. HE USES A FWW AT [facility]. HE LIVES WITH HIS , WHO IS 80, IN A HOME WITH STAIRS. RN SPOKE TO GRAND DAUGHTER KYLE, WHO LIVES IN [place], ON THE PHONE AND KYLE WOULD LIKE HER GRANDPA TO HAVE SOME SKILLED REHAB. SHE IS CONCERNED ABOUT HER GRANDPARENTS LIVING INDEPENDENTLY IN [place], GIVEN THEIR FRAGILE HEALTH CONDITIONS.
--- NOTE | 2024-10-01 03:22 | NUR ---
VIDEO GAME PROGRAMMER SUMMARY: PT ADMITTED FOR INFLUENZA A AND UTI. FULL CODE. PLANNED D/C HOME IN AM PENDING WEATHER AND 'S ABILITY TO COME TO GET PT. NO ACUTE CHANGES THIS SHIFT. VSS. A&O X3-4, FORGETFUL TO HIS LIMITATIONS. 2L VIA NC AT HS, SATS MAINTAINED ABOVE 90%. CARES CONTINUE ORDERED. CALL LIGHT IN REACH.
[2024-10-01 04:18] VITALS: BP 133/64
[2024-10-01 07:42] VITALS: BP 154/66
--- NOTE | 2024-10-01 15:45 | NUR ---
PT DISCHARGED TO HOME WITH HH [facility]IA [facility]EL[facility]. DISCHARGE INSTRUCTIONS PROVIDED AND EDUCATED ON AT TIME OF DISCHARGE. ALL VALUABLES RETURNED AND SENT HOME WITH THE PT.
== END 2024-10-01 15:54 | disposition home health service (06) | DRG 193 ==
LOC: ER 11:25 → ERHOLD 15:22 → MEDS 15:22
PROVIDERS: Student in an Organized Health Care Education/Training Program; ADMIT Internal Medicine
DX: J10.1 Influenza due to other identified influenza virus with other respiratory manifestations (principal); G92.8 Other toxic encephalopathy; J96.01 Acute respiratory failure with hypoxia; N39.0 Urinary tract infection, site not specified; J44.0 Chronic obstructive pulmonary disease with (acute) lower respiratory infection; D84.9 Immunodeficiency, unspecified; J44.1 Chronic obstructive pulmonary disease with (acute) exacerbation; N40.0 Benign prostatic hyperplasia without lower urinary tract symptoms; E87.6 Hypokalemia; M06.9 Rheumatoid arthritis, unspecified; E78.5 Hyperlipidemia, unspecified; G47.30 Sleep apnea, unspecified; F32.A Depression, unspecified; Z87.19 Personal history of other diseases of the digestive system; I48.0 Paroxysmal atrial fibrillation; Z98.890 Other specified postprocedural states; Z87.891 Personal history of nicotine dependence; Z79.899 Other long term (current) drug therapy; Z79.82 Long term (current) use of aspirin; Z79.2 Long term (current) use of antibiotics
CPT/HCPCS: 36415; 51701; 71045; 80048; 80053; 81001; 82803; 84484; 85025; 87086; 87428-QW; 93005; 93010; 94640; 94644; 94664; 94760; 94761; 97116; 97161; 99285-25; A9270; J0696; J1650; J3480; J7050

== ENCOUNTER 2025-02-16 20:00 | Emergency (ER) | payer OTHER, MEDICARE ==
[~2025-02-16] VITALS: Ht 182.9 cm; Wt 92.1 kg
[~2025-02-16 20:00] MED LIST changes: +ASMANEX110 MC3 INH; +FLUTICASONE-SA1 EAC1 INH; +GUAI600T33 PO; +GUAIASORB DM 2118 ML PO; +Hair, Skin & N1 EACH PO; +IPRAT-ALBUT 0.5-3 ML INH; +OSEL75CA PO; +PRAZ2 PO; +Prozac20 MG PO; +Q-Tussin100 MG/5 M PO; +VITAMIN B-121000 MCG PO
[2025-02-16 20:22] VITALS: BP 131/98
[2025-02-16 20:54] LABS: BASOPHILS ABSOLUTE AUTO 0.13 K/mm3 (0.00-0.23); BASOPHILS PERCENT AUTO 1 % (0-2); EOSINOPHILS ABSOLUTE AUTO 0.25 K/mm3 (0.00-0.68); EOSINOPHILS PERCENT AUTO 2 % (0-6); Hematocrit 34.8 % (37.0-53.0); Hemoglobin 11.5 g/dL (13.5-17.5); IMMATURE GRAN ABSOLUTE AUTO 0.04 K/mm3 (0.00-0.10); IMMATURE GRAN PERCENT AUTO 0 % (0-1); LYMPHOCYTES ABSOLUTE AUTO 1.28 K/mm3 (0.84-5.20); LYMPHOCYTES PERCENT AUTO 12 % (21-46); MONOCYTES ABSOLUTE AUTO 0.97 K/mm3 (0.16-1.47); MONOCYTES PERCENT AUTO 9 % (4-13); Mean Corpuscular HGB 31.3 pg (26.0-34.0); Mean Corpuscular Volume 95 fL (80-100); Mean Platelet Volume 10.1 fL (9.1-12.4); NEUTROPHILS ABSOLUTE AUTO 8.23 K/mm3 (1.96-9.15); NEUTROPHILS PERCENT AUTO 76 % (41-73); Platelet Count 291 K/mm3 (150-400); RDW Coefficient Variation 15.2 % (11.7-14.2); RDW Standard Deviation 52.2 fL (35.1-46.3); Red Blood Cell Count 3.68 M/mm3 (4.30-5.90)
[2025-02-16 21:18] LABS: Albumin, Blood 3.8 g/dL (3.4-5.0); Albumin/Globulin Ratio 1.1 (0.8-1.8); Bilirubin, Total 0.3 mg/dL (0.1-1.0); Bun/Creatinine Ratio 20.6 (12.0-20.0); Calcium, Blood 8.7 mg/dL (8.5-10.1); Creatinine, Blood 1.07 mg/dL (0.60-1.20); Globulin, Blood 3.6 g/dL (2.2-4.0); Potassium, Blood 4.1 mmol/L (3.5-5.5); Total Protein, Blood 7.4 g/dL (6.4-8.2)
[2025-02-16 21:22] LABS: International Normalized Ratio 1.04; Prothrombin Time Results 11.4 Sec (9.7-11.5)
== END 2025-02-16 22:39 | disposition left against medical advice (07) ==
LOC: ER 20:00
PROVIDERS: Student in an Organized Health Care Education/Training Program
DX: R31.9 Hematuria, unspecified (principal); Z53.21 Procedure and treatment not carried out due to patient leaving prior to being seen by health care provider; Z79.82 Long term (current) use of aspirin; Z79.899 Other long term (current) drug therapy
CPT/HCPCS: 80053; 85025; 85610; 85730; 99281

== ENCOUNTER 2025-08-23 10:23 | Emergency (ER) | payer OTHER, MEDICARE ==
[~2025-08-23] VITALS: Ht 182.9 cm; Wt 99.8 kg
[2025-08-23 10:49] LABS: Source, Urine Clean Catch
[2025-08-23 10:56] LABS: BASOPHILS ABSOLUTE AUTO 0.09 K/mm3 (0.00-0.23); BASOPHILS PERCENT AUTO 1 % (0-2); EOSINOPHILS ABSOLUTE AUTO 0.06 K/mm3 (0.00-0.68); EOSINOPHILS PERCENT AUTO 1 % (0-6); Hematocrit 37.6 % (37.0-53.0); Hemoglobin 12.4 g/dL (13.5-17.5); IMMATURE GRAN ABSOLUTE AUTO 0.05 K/mm3 (0.00-0.10); IMMATURE GRAN PERCENT AUTO 0 % (0-1); LYMPHOCYTES ABSOLUTE AUTO 0.92 K/mm3 (0.84-5.20); LYMPHOCYTES PERCENT AUTO 8 % (21-46); MONOCYTES ABSOLUTE AUTO 1.17 K/mm3 (0.16-1.47); MONOCYTES PERCENT AUTO 10 % (4-13); Mean Corpuscular HGB Conc 33.0 g/dL (31.5-36.5); Mean Corpuscular Volume 90 fL (80-100); NEUTROPHILS ABSOLUTE AUTO 9.24 K/mm3 (1.96-9.15); NEUTROPHILS PERCENT AUTO 80 % (41-73); NRBC ABSOLUTE 0.00 K/mm3 (0.00-0.02); NRBC Auto 0.0 /100 WBC (0.0-0.2); Platelet Count 220 K/mm3 (150-400); RDW Coefficient Variation 13.6 % (11.7-14.2); RDW Standard Deviation 45.4 fL (35.1-46.3)
[2025-08-23 10:57] LABS: Bilirubin, Urine Neg (Neg); Color, Urine Yellow (P-Yellow); Glucose Qualitative, Urine Neg (Neg); Ketones, Urine Neg (Neg); Leukocyte Esterase, Urine Neg (Neg); Protein, Urine 2+ (Neg); Specific Gravity, Urine 1.010 (1.003-1.022); Urobilinogen, Urine NORM (Normal)
[2025-08-23 11:11] LABS: Alanine Aminotransfer (ALT/SGP 20 U/L (12-78); Albumin, Blood 3.2 g/dL (3.4-5.0); Albumin/Globulin Ratio 0.9 (0.8-1.8); Anion Gap 9 mmol/L (3-11); Aspartate Aminotrans (AST/SGOT 60 U/L (12-37); Bilirubin, Total 1.8 mg/dL (0.1-1.0); Blood Urea Nitrogen 24 mg/dL (8-24); CO2, Blood 25 mmol/L (21-32); Calcium, Blood 9.1 mg/dL (8.5-10.1); Chloride, Blood 106 mmol/L (98-108); Creatinine, Blood 1.03 mg/dL (0.60-1.20); Ethanol (Alcohol), Blood, Med <3 mg/dL; Globulin, Blood 3.7 g/dL (2.2-4.0); Glucose, Blood 82 mg/dL (70-99); Potassium, Blood 4.2 mmol/L (3.5-5.5); Sodium, Blood 136 mmol/L (136-145); Total Protein, Blood 6.9 g/dL (6.4-8.2)
[2025-08-23 11:15] LABS: U Amphetamine Screen Not Detected; U Barbiturate Screen Not Detected; U Benzodiazapine Screen DETECTED; U Buprenorphine Screen Not Detected; U Cannabinoids Screen Not Detected; U Cocaine Screen Not Detected; U Methadone Screen Not Detected; U Methamphetamine Screen Not Detected; U Opiates Screen Not Detected; U Oxycodone Screen Not Detected; U Phencyclidine Screen Not Detected
[2025-08-23 11:19] LABS: White Blood Cells, Urine 0-2 /hpf (0-5)
[2025-08-23 12:19] VITALS: BP 148/69
[2025-08-23] MEDS ORDERED: AMOCLA875 PO (13:24)
[2025-08-23] MEDS ORDERED: SEROQUEL25 MG PO (13:24)
== END 2025-08-23 13:40 | disposition home or self-care (01) ==
LOC: ER 10:23
PROVIDERS: Emergency Medicine
DX: J18.9 Pneumonia, unspecified organism (principal); J44.0 Chronic obstructive pulmonary disease with (acute) lower respiratory infection; F03.90 Unspecified dementia, unspecified severity, without behavioral disturbance, psychotic disturbance, mood disturbance, and anxiety; F05 Delirium due to known physiological condition; M06.9 Rheumatoid arthritis, unspecified; I10 Essential (primary) hypertension; I48.0 Paroxysmal atrial fibrillation; G47.30 Sleep apnea, unspecified; E78.5 Hyperlipidemia, unspecified; K21.9 Gastro-esophageal reflux disease without esophagitis; Z87.891 Personal history of nicotine dependence; Z79.631 Long term (current) use of antimetabolite agent; Z79.82 Long term (current) use of aspirin; Z79.899 Other long term (current) drug therapy
CPT/HCPCS: 71046; 80053; 80320; 81001; 85025; 93005; 93010; 99285-25; A9270

== ENCOUNTER 2025-08-25 17:26 | Emergency (ER) | payer OTHER, MEDICARE ==
[~2025-08-25] VITALS: Ht 180.3 cm; Wt 90.7 kg
[~2025-08-25 17:26] MED LIST changes: +SEROQUEL25 MG PO
[2025-08-25] MEDS ORDERED: FERSU300 PO (20:11)
[2025-08-25] MEDS ORDERED: THERA-D2000 UNIT PO (20:12)
[2025-08-25] MEDS ORDERED: MIRALAX17 GM PO (20:13)
[2025-08-25] MEDS ORDERED: LOSA50 PO (20:15)
[2025-08-25 20:17] LABS: BASOPHILS ABSOLUTE AUTO 0.11 K/mm3 (0.00-0.23); BASOPHILS PERCENT AUTO 1 % (0-2); EOSINOPHILS ABSOLUTE AUTO 0.14 K/mm3 (0.00-0.68); EOSINOPHILS PERCENT AUTO 1 % (0-6); Hematocrit 41.8 % (37.0-53.0); Hemoglobin 13.8 g/dL (13.5-17.5); IMMATURE GRAN ABSOLUTE AUTO 0.06 K/mm3 (0.00-0.10); IMMATURE GRAN PERCENT AUTO 0 % (0-1); LYMPHOCYTES ABSOLUTE AUTO 1.00 K/mm3 (0.84-5.20); LYMPHOCYTES PERCENT AUTO 7 % (21-46); MONOCYTES ABSOLUTE AUTO 1.36 K/mm3 (0.16-1.47); MONOCYTES PERCENT AUTO 10 % (4-13); Mean Corpuscular HGB Conc 33.0 g/dL (31.5-36.5); Mean Corpuscular Volume 92 fL (80-100); NEUTROPHILS ABSOLUTE AUTO 11.55 K/mm3 (1.96-9.15); NEUTROPHILS PERCENT AUTO 81 % (41-73); NRBC ABSOLUTE 0.00 K/mm3 (0.00-0.02); NRBC Auto 0.0 /100 WBC (0.0-0.2); Platelet Count 288 K/mm3 (150-400); RDW Coefficient Variation 13.5 % (11.7-14.2); RDW Standard Deviation 45.3 fL (35.1-46.3)
[2025-08-25 20:35] LABS: Alanine Aminotransfer (ALT/SGP 30.0 U/L (12-78); Albumin, Blood 3.6 g/dL (3.4-5.0); Albumin/Globulin Ratio 0.9 (0.8-1.8); Anion Gap 13.0 mmol/L (3-11); Aspartate Aminotrans (AST/SGOT 66.0 U/L (12-37); Bilirubin, Total 1.2 mg/dL (0.1-1.0); Blood Urea Nitrogen 24.0 mg/dL (8-24); CO2, Blood 22.0 mmol/L (21-32); Calcium, Blood 9.5 mg/dL (8.5-10.1); Chloride, Blood 105.0 mmol/L (98-108); Creatinine, Blood 0.89 mg/dL (0.60-1.20); Globulin, Blood 4.0 g/dL (2.2-4.0); Glucose, Blood 88.0 mg/dL (70-99); Magnesium, Blood 2.3 mg/dL (1.6-2.4); Potassium, Blood 4.5 mmol/L (3.5-5.5); Sodium, Blood 135.0 mmol/L (136-145); Total Protein, Blood 7.6 g/dL (6.4-8.2)
[2025-08-25] MEDS ORDERED: Ketorolac Tromethamine 15mg Vial IV ONE (21:20)
[2025-08-25 21:22] LABS: Influenza A, PCR NEGATIVE (NEGATIVE); Influenza B, PCR NEGATIVE (NEGATIVE); Resp Syncytial Virus, PCR NEGATIVE (NEGATIVE); SARS-Cov-2 (COVID-19) PCR, MMC NEGATIVE (NEGATIVE)
[2025-08-26 01:20] LABS: Source, Urine Clean Catch
[2025-08-26 01:23] LABS: Bilirubin, Urine Neg (Neg); Glucose Qualitative, Urine Neg (Neg); Ketones, Urine 3+ (Neg); Leukocyte Esterase, Urine 1+ (Neg); Protein, Urine 3+ (Neg); Specific Gravity, Urine 1.020 (1.003-1.022); Urobilinogen, Urine NORM (Normal)
[2025-08-26 01:46] LABS: Color, Urine Yellow (P-Yellow)
[2025-08-26 01:47] LABS: Red Blood Cells, Urine 25-50 /hpf (0-2); White Blood Cells, Urine 0-2 /hpf (0-5)
[2025-08-26] MEDS ORDERED: Albuterol 2.5 MG/3 ML VIAL INH PRN (01:55)
[2025-08-26 08:37] VITALS: BP 196/79
[2025-08-26] MEDS ORDERED: QUET25 PO (12:08)
== END 2025-08-26 12:15 | disposition home or self-care (01) ==
LOC: ER 17:26
PROVIDERS: Student in an Organized Health Care Education/Training Program
DX: R53.1 Weakness (principal); F03.911 Unspecified dementia, unspecified severity, with agitation; M06.9 Rheumatoid arthritis, unspecified; J44.9 Chronic obstructive pulmonary disease, unspecified; E78.5 Hyperlipidemia, unspecified; G47.30 Sleep apnea, unspecified; I48.0 Paroxysmal atrial fibrillation; I10 Essential (primary) hypertension; K21.9 Gastro-esophageal reflux disease without esophagitis; Z87.891 Personal history of nicotine dependence; Z87.01 Personal history of pneumonia (recurrent); Z88.6 Allergy status to analgesic agent; Z79.82 Long term (current) use of aspirin; Z79.631 Long term (current) use of antimetabolite agent; Z79.51 Long term (current) use of inhaled steroids; Z79.899 Other long term (current) drug therapy
CPT/HCPCS: 51701; 71045; 80053; 81001; 83690; 83735; 83880; 84484; 85025; 87637; 93005; 93010; 96374; 99285-25; A9270; J1790; J1885